=== PATIENT | female | born 1955 | race Caucasian/White ===

== ENCOUNTER 2017-01-07 17:04 | Inpatient (IN) | payer OTHER ==
[~2017-01-07] VITALS: Ht 157.5 cm; Wt 54.9 kg
[~2017-01-07 17:04] MED LIST changes: -AMLODIPINE BESY10 M1 PO; -BUPROPION XL150 MG PO; -DOCUSATE SODIU100 M3 PO; -MORPHINE SULFAT15 M4 PO; -SENNA PLUS TAB1 EACH PO; -SERTRALINE HCL50 MG PO
--- NOTE | 2017-01-07 17:14 | NUR ---
PT TO ED S/P URETER SURGERY WITH DR JUDGE THIS AM AT 0830, STENT PLACED. PT C/O NAUSEA AND DRY HEAVING "SINCE I WENT TO RECOVERY, I CAN'T KEEP ANYTHING DOWN"
--- NOTE | 2017-01-07 17:36 | NUR ---
MD KENDRA TO BEDSIDE FOR PT EVAL.
--- NOTE | 2017-01-07 17:36 | ED GI/GU/ABDOMINAL COMPLAINT ---
History of Present Illness General Chief Complaint: Nausea, Vomiting, Diarrhea Stated Complaint: NAUSEA, FLU-LIKE SX S/P OUTPATIENT SUREGRY THIS AM Source: patient, family Exam Limitations: no limitations Vital Signs & Intake/Output Vital Signs & Intake/Output Vital Signs Date Time Temp Pulse Resp B/P B/P Pulse O2 O2 Flow FiO2 Mean Ox Delivery Rate 01/11 0850 140/88 01/11 0658 98.2 68 16 158/80 94 Room Air 01/11 0423 178/100 01/11 0328 190/100 01/11 0233 98.0 68 16 190/100 92 Room Air 01/10 2246 98.6 71 20 154/88 92 Room Air 01/10 1845 98.5 63 18 158/98 95 Room Air 01/10 1616 178/98 01/10 1440 64 188/102 01/10 1415 97.9 61 20 162/99 93 Room Air 01/10 1051 70 170/98 ED Intake and Output 01/11 0000 01/10 1200 Intake Total 700 20 Output Total 1850 950 Balance -1150 -930 Intake, IV 600 20 Intake, Oral 100 Number 0 Bowel Movements Output, Urine 1850 950 Patient 121 lb Weight Allergies Coded Allergies: No Known Allergies (01/04/17) Reconcile Medications Bupropion HCl (Bupropion XL) 150 MG TAB.ER.24H 1 TAB PO QAM MENTAL HEALTH ( Reported) Sertraline HCl 50 MG TABLET 1 TAB PO DAILY MENTAL HEALTH (Reported) Triage Note: PT TO ED S/P URETER SURGERY WITH DR JUDGE THIS AM AT 0830, STENT PLACED. PT C/O NAUSEA AND DRY HEAVING "SINCE I WENT TO RECOVERY, I CAN'T KEEP ANYTHING DOWN" Triage Nurses Notes Reviewed? yes ? n Is pt currently ? No HPI: 61 yo F PMH migraines presenting with abdominal pain. Patient went for cystoscopy today with ureteral stenting, recovered well post procedure, discharged home, after discharge patient developed progressive nausea, vomiting, and left lower quadrant abdominal pain prompting return to the emergency department. Some hematuria since procedure, patient told to expect this. Denies fevers, chills, chest pain, shortness of breath, constpation diarrhea, bloody stools. (KENDRA ACOSTA,MELVA) Past History Travel History Traveled to [place] past 21 day No Medical History Any Pertinent Medical History? 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 Yes (MELVA GARDNER MD) Review of Systems Review of Systems Constitutional: Reports: malaise, weakness. EENTM: Reports: no symptoms. Respiratory: Reports: no symptoms. Cardiovascular: Reports: no symptoms. GI: Reports: abdominal pain, nausea, vomiting. Genitourinary: Reports: hematuria, pain. Musculoskeletal: Reports: no symptoms. Skin: Reports: no symptoms. Neurological/Psychological: Reports: no symptoms. Hematologic/Endocrine: Reports: no symptoms. Immunologic/Allergic: Reports: no symptoms. All Other Systems: Reviewed and Negative (MELVA GARDNER MD) Physical Exam Physical Exam General Appearance: well developed/nourished, alert, awake, anxious, mild distress Head: atraumatic, normal appearance Eyes: Bilateral: normal appearance. Neck: normal inspection, supple, full range of motion Respiratory: normal breath sounds, no respiratory distress, lungs clear Cardiovascular: regular rate/rhythm, normal peripheral pulses Gastrointestinal: normal bowel sounds, soft, LLQ TTP Back: normal inspection Comments: Abdomen: Moderate LLQ TTP with rebound Core Measures ACS in differential dx? No Severe Sepsis Present: No Septic Shock Present: No (MELVA GARDNER MD) Progress Differential Diagnosis: bowel obstruction, cholecystitis, diverticulitis, gastritis, ischemic bowel, kidney stone, ovarian cyst, ovarian torsion, PID/ cervicitis, PUD/GERD, perforated viscous Plan of Care: Orders Procedure Date/time Status CBC WITHOUT DIFFERENTIAL 01/11 06 Complete BASIC ELECTROLYTES PLUS BUN&CR 01/11 06 Complete XRY-FLUOROSCOPY,INDEPEND PROC 01/11 UNK Active Regular Diet 01/10 D Active Current Medications Sig/Melania Start time Last Medication Dose Stop Time Status Admin Amlodipine Besylate 10 MG DAILY 01/11 0315 AC 01/11 (Norvas) 0328 Amlodipine Besylate 10 MG ONCE ONE 01/11 0245 CAN (Norvasc) 01/11 0246 Morphine Sulfate 2 MG Q4P PRN 01/11 0030 AC 01/11 (Morphine) 0036 Sertraline HCl 50 MG 1700 01/10 1700 AC 01/10 (Zoloft) 1906 Morphine Sulfate 4 MG Q3P PRN 01/10 1615 AC 01/10 (Morphine) 1911 Docusate Sodium 100 MG DAILY 01/10 1000 AC 01/11 (Colace) 0815 Senna/Docusate Sodium 2 TAB DAILY 01/10 1000 AC 01/11 (Senokot S) 0815 Polyethylene Glycol 17 GM DAILY PRN 01/10 0845 AC 01/10 (Miralax) 2228 Bupropion HCl 150 MG 0801/10 0800 AC 01/11 (Wellbutrin XL) 0815 Simethicone 80 MG Q6P PRN 01/10 0030 AC 01/10 (Mylicon) 0627 Metoclopramide HCl 10 MG Q6P PRN 01/09 1200 AC 01/09 (Reglan) 1201 Nicotine 14 MG DAILY 01/08 1301 AC 01/11 (Nicotine Cq) 0815 Ceftazidime 1,000 MG IQ8 01/08 0000 AC 01/11 (Fortaz) 0815 Ondansetron HCl 4 MG Q4P PRN 01/07 2300 AC 01/09 (Zofran) 1043 Vancomycin HCl 1,000 MG 01/07 2300 AC 01/10 Sodium Chloride 250 ML 2229 (Normal Saline 0.9%) Acetaminophen 325 MG Q6P PRN 01/07 2115 AC 01/09 (Tylenol) 1357 Laboratory Tests 01/11/17 0610: Anion Gap 11, Estimated GFR > 60, BUN/Creatinine Ratio 15.0, CBC w Diff NO MAN DIFF REQ, RBC 4.19 L, MCV 92.7, MCH 31.1 H, RDW 14.1, MPV 9.2, Gran % 75.9 H, Lymphocytes % 13.2 L, Monocytes % 9.5 H, Eosinophils % 1.1, Basophils % 0.3, Absolute Granulocytes 7.9 H, Absolute Lymphocytes 1.4, Absolute Monocytes 1.0 H, Absolute Eosinophils 0.1, Absolute Basophils 0, PUBS MCHC 33.5 Physician MDM: 61 yo F presenting with LLQ pain s/p urologic procedure. VSS, abdominal exam as above. DDx: Ureteral rupture, stent migration, routine post- operative pain. Given a liter normal saline, Zofran, morphine with improvement in pain and nausea. Labs remarkable for leukocytosis of 15.3, CMP unremarkable. CT Abdomen and pelvis with left proximal ureter rupture. Case discussed with Dr. Woods, on-call for Dr. Dorsey who performed the procedure this afternoon, requested IR consultation for placement of nephrostomy tube, admission to hospital service. Case discussed with the hospitalist service (Dr. Gaspar), given presence of free air adjacent to ureteral rupture site. Case discussed with on-call prototyper (Dr. Ramos), accepted patient for ICU admission. IR consulted for nephrostomy tube placement, will evaluate patient for procedure. Admit to the intensive care unit for further management of ureteral rupture. The care was discussed with the patient and her daughter who expressed agreement and understanding. (KENDRA ACOSTA,MELVA) Initial ED EKG: normal axis (MELVA GARDNER MD) Departure Departure Disposition: STILL A PATIENT Condition: Stable Clinical Impression Primary Impression: Ureter injury Qualifiers: Encounter type: initial encounter Qualified Code: S37.10XA - Unspecified injury of ureter, initial encounter Secondary Impressions: LLQ pain Referrals: JUMANA LUNDBERG (PCP/Family) Departure Forms: Customer Survey General Discharge Information Admission Note Spoke With: DEIRDRE MONTEIRO MD Documentation of Exam: Documentation of any treatments & extenuating circumstances including Concerns Regarding Discharge (functional status, medication knowledge or non-compliance, living conditions, etc.) that warrant an admission rather than observation: [ Patient presents with left lower quadrant pain and profound nausea and vomiting following a urologic procedure today, she was found to have a ureteral rupture and will require admission for further management by urology or IR, her imaging demonstrated pneumoperitoneum, if she was discharged she has a high likelihood of further decompensation, morbidity, and possibly mortality, she requires monitoring advance management by urology or IR that cannot be performed outside of the hospital] (KENDRA ACOSTA,MELVA) PA/PILOT SAFETY INSPECTOR Co-Sign Statement Statement: ED Attending supervision documentation- [] I saw and evaluated the patient. I have also reviewed all the pertinent lab results and diagnostic results. I agree with the findings and the plan of care as documented in the PA's/PILOT SAFETY INSPECTOR's documentation. [X] I have reviewed the ED Record and agree with the PA's/PILOT SAFETY INSPECTOR's documentation. [] Additions or exceptions (if any) to the PAs/PILOT SAFETY INSPECTOR's note and plan are summarized below: [] (ISAK ACOSTA,FELICITA)
[2017-01-07] MEDS ORDERED: BUPROPION XL150 MG PO (17:49)
[2017-01-07] MEDS ORDERED: SERTRALINE HCL50 MG PO (17:49)
[2017-01-07 18:07] LABS: ABSOLUTE BASOPHIL COUNT 0.1 /CUMM (0.0-0.2); ABSOLUTE EOSINOPHIL COUNT 0 /CUMM (0.0-0.7); ABSOLUTE GRANULOCYTE CT 14.2 /CUMM (1.4-6.5); ABSOLUTE LYMPH COUNT 0.8 /CUMM (1.2-3.4); ABSOLUTE MONOCYTE COUNT 0.2 /CUMM (0.10-0.60); BASOPHIL % 0.4 % (0.0-2.0); EOSINOPHIL % 0.1 % (0-5); GRANULOCYTE % 93.1 % (42.2-75.2); HEMATOCRIT 42.4 % (37-47); MEAN CORPUSCULAR HGB 30.8 PG (27.0-31.0); MEAN CORPUSCULAR HGB CONC 32.9 G/DL (33.0-37.0); MEAN CORPUSCULAR VOLUME 93.6 FL (81.0-99.0); MEAN PLATELET VOLUME 8.6 FL (7.4-10.4); PLATELET COUNT 327 /CUMM (130-400); RBC DISTRIBUTION WIDTH 14.5 % (11.5-14.5); RED BLOOD CELL CT 4.53 /CUMM (4.20-5.40); WHITE BLOOD CELL COUNT 15.3 /CUMM (4.8-10.8)
--- NOTE | 2017-01-07 18:21 | NUR ---
IV EST, PT MEDICATED PER EMAR.
--- NOTE | 2017-01-07 19:04 | NUR ---
PT RETURNS FROM CT SCAN
--- NOTE | 2017-01-07 19:27 | NUR ---
PT MEDICATED WITH 4 MG IV MORPHINE FOR 10/10 PAIN AND GIVEN ICE CHIPS PER ORDERS MELVA SANCHEZ. MD GARDNER AT BEDSIDE DISCUSSING CT RESULTS WITH PATIENT. PT INCONTINENT OF URINE. PERICARE PROVIDED, LINENS CHANGED.
--- NOTE | 2017-01-07 19:46 | CT SCAN REPORT ---
EXAMINATION: CT ABDOMEN AND PELVIS WITH CONTRAST CLINICAL INFORMATION: Abdominal pain. Nausea and vomiting. Status post renal stenting. COMPARISON: None. TECHNIQUE: Multidetector volumetric imaging was performed of the abdomen and pelvis before and after the IV administration of 95 mL of Optiray 320 intravenous contrast. Sagittal and coronal reformatted images were obtained on the technologist's workstation. DLP: 242 mGy-cm FINDINGS: LUNG BASES: Mild dependent atelectasis. Minimal centrilobular emphysema. LIVER, GALLBLADDER, AND BILIARY TREE: Periportal edema is noted. The liver is normal in size and contour. No focal lesions. The gallbladder is unremarkable with no evidence of radiopaque gallstones, gallbladder wall thickening, or obvious pericholecystic inflammatory changes. PANCREAS: Unremarkable. SPLEEN: Unremarkable. ADRENAL GLANDS: Unremarkable. KIDNEYS AND URETERS: The left nephrogram is slightly delayed as compared to the contralateral side. Kidneys are normal in size and contour. No focal lesions. Perinephric fluid and fat stranding are present at the left kidney with extension of fluid into the left anterior pararenal space. Foci of gas are present around the left renal pelvis and proximal ureter along the anterior margin. Additional gas is present at the left lateral margin of the L2 vertebral body in this region. The proximal coil of the left ureteral stent is situated medial to the proximal ureter just inferomedial to the ureteral pelvic junction (1-2 cm). The wall of the ureter is not well seen in this region, though the stent likely extends through the wall of the ureter 4 cm proximal to the distal tip of the coil. This is also approximately 4 cm distal to the left UPJ. Hyperdense material just medial to the renal pelvis and the retroperitoneum, likely corresponding to a pocket of contrast containing fluid. This measures 2.8 x 1 x 2.8 cm, best seen on image 29/82 of series 2. BLADDER: The distal pole of the left double-J ureteral stent terminates within the bladder. A punctate focus of gas is present within the bladder. GASTROINTESTINAL TRACT: Stomach, small bowel, and colon are normal in caliber. There is a small amount of intraperitoneal fluid, presumably related to the ruptured ureter. No intraperitoneal free air. ABDOMINAL WALL: No significant hernia is appreciated. LYMPH NODES: Normal. VASCULAR: Calcific atherosclerosis is present in the abdominal aorta and iliac arteries. No aneurysmal dilatation. Mildly prominent periuterine veins are present bilaterally. PELVIC VISCERA: Uterus and ovaries are unremarkable. OSSEOUS STRUCTURES: Minimal degenerative disc disease. Marked facet arthropathy is present in the lower lumbar spine. No osseous lesions are identified. IMPRESSION: 1. The left double-J ureteral stent punctures through the wall of the left proximal ureter approximately 4 cm inferior to the left UPJ. Foci of gas and a small collection of contrast material are present around the left proximal ureter at the site of perforation. There is a small amount of fluid within the left retroperitoneum and a small amount of intraperitoneal fluid as well. 2. Periportal edema, commonly seen with aggressive intravenous fluid administration. This critical result was discussed by telephone with Dr. Sky at 7:20 PM on 01/07/2017.
--- NOTE | 2017-01-07 21:13 | NUR ---
HOUSE STAFF INTO EVALUATE PATIENT
--- NOTE | 2017-01-07 22:19 | History & Physical ---
KELLEYVINCENZOCASTILLO 01/07/17 2200: General Information and HPI MD Statement: I have seen and personally examined SUSANNA DUARTE and documented this H&P. The patient is a 61 year old F who presented with a patient stated chief complaint of [ LLQ pain, nausea and vomiting]. Source of Information: patient, family Exam Limitations: no limitations History of Present Illness: Patient is a 61-year-old female with past medical history of hematuria, stress incontinence, migraines, depression, tobacco abuse who presented to the ED today for abdominal pain, dry heaving, nausea post urological procedure this morning. Patient reports that she has been having hematuria for a few months now and following up with Dr. Mccarty regarding the same. An outpatient CAT scan revealed ?mass in the left ureter and so she was scheduled to undergo cystoscopy for evaluation. She underwent cystoscopy with urethral sling and left-sided urethral stent placement around 8:30 this morning. It was a difficult procedure, and required multiple attempts due to kinked left ureter. A 6 X 22 cm urethral stent was put in on the left side. She tolerated the procedure well and was discharged home. At home, patient started having abdominal pain and nausea with dry heaves. Pain was 10/10 in intensity, intermittent, sharp, in the left lower quadrant/groin area with hematuria. She spoke to her urologist who recommended her to take Tylenol/Motrin for the pain as it was expected post the procedure. Also the hematuria would was expected to clear up by itself. Patient continued to have pain with intense nausea and decided to come to the ER for evaluation. She denied any fevers, chills, chest pain, shortness of breath, urgency, frequency, dysuria, diarrhea or bright red blood per rectum. In the ER vitals were stable with a temperature of 96.1, pulse 82, respiration 20, blood pressure 158/75, saturating 96% on room air. Pertinent labs showed a white count of 15.3 with 4 bands, normal chemistries, and electrolytes levels. UA benign EKG-Sinus Bradycardia [address] abdomen and pelvis showed left double-J ureteral stent punctures through the wall of the left proximal ureter approximately 4 cm inferior to the left UPJ. Foci of gas and a small collection of contrast material are present around the left proximal ureter at the site of perforation. There is a small amount of fluid within the left retroperitoneum and a small amount of intraperitoneal fluid as well. Periportal edema, commonly seen with aggressive intravenous fluid administration. Allergies/Medications Allergies: Coded Allergies: No Known Allergies (01/04/17) Home Med list Bupropion HCl (Bupropion XL) 150 MG TAB.ER.24H 1 TAB PO QAM MENTAL HEALTH ( Reported) Sertraline HCl 50 MG TABLET 1 TAB PO DAILY MENTAL HEALTH (Reported) Past History Travel History Traveled to [place] past 21 day No Medical History Neurological: migraine EENT: hearing loss, HEARING AIDES Cardiovascular: NONE Respiratory: NONE Gastrointestinal: NONE Hepatic: NONE Renal: NONE Musculoskeletal: NONE Psychiatric: NONE Endocrine: NONE Blood Disorders: NONE Cancer(s): NONE CONTROL PANEL TESTER/Reproductive: NONE Surgical History Surgical History: none Past Family/Social History Psychosocial History ETOH Use: denies use Illicit Drug Use: denies illicit drug use Review of Systems Review of Systems Constitutional: Denies: malaise. EENTM: Reports: no symptoms. Cardiovascular: Reports: no symptoms. Respiratory: Reports: no symptoms. GI: Reports: abdominal pain, nausea, vomiting. Genitourinary: Reports: hematuria. Musculoskeletal: Reports: no symptoms. Skin: Reports: no symptoms. Neurological/Psychological: Reports: no symptoms. Exam & Diagnostic Data Last 24 Hrs of Vital Signs/I&O Vital Signs Date Time Temp Pulse Resp B/P B/P Pulse O2 O2 Flow FiO2 Mean Ox Delivery Rate 01/07 2130 98.7 60 20 145/72 97 Room Air 01/07 1916 97.8 58 20 174/77 98 Room Air 01/07 1714 96.1 82 20 158/75 96 Room Air Room Air Physical Exam General Appearance Alert, Oriented X3, Cooperative, No Acute Distress Skin No Rashes, No Breakdown, No Significant Lesion Skin Temp/Moisture Exam: Warm/Dry Sepsis Skin Exam (color): Normal for Ethnicity HEENT Atraumatic, PERRLA, EOMI, Mucous Membr. moist/pink Neck Supple, No JVD Lymphatic Cervical nl Cardiovascular Regular Rate, Normal S1, Normal S2, No Murmurs Lungs Clear to Auscultation, Normal Air Movement Abdomen Normal Bowel Sounds, tenderness in the LLQ, patient does not allow to palpate the left quadrant. No tenderness in the rest of the abdomen, sling noted on the right groin Neurological Normal Gait, Normal Speech, Strength at 5/5 X4 Ext, Normal Tone Extremities No Clubbing, No Cyanosis, No Edema, Normal Pulses Last 24 Hrs of Labs/Raudel: Laboratory Tests 01/07/17 1752: Anion Gap 10, Estimated GFR > 60, BUN/Creatinine Ratio 14.4, Glucose 131 H, Lactic Acid 1.2, Calcium 9.2, Lipase 41, CBC w Diff MAN DIFF ORDERED, RBC 4.53, MCV 93.6, MCH 30.8, RDW 14.5, MPV 8.6, Gran % 93.1 H, Lymphocytes % 5.1 L, Monocytes % 1.3 L, Eosinophils % 0.1, Basophils % 0.4, Absolute Granulocytes 14.2 H, Segmented Neutrophils 85 H, Band Neutrophils 4, Absolute Lymphocytes 0.8 L, Lymphocytes 6 L, Monocytes 4, Absolute Monocytes 0.2, Eosinophils 1, Absolute Eosinophils 0, Absolute Basophils 0.1, Platelet Estimate ADEQUATE, Normochromic RBCs VERIFIED, Anisocytosis 1+, Macrocytic Cells 1+, PUBS MCHC 32.9 L Assessment/Plan Assessment: Patient is a 61-year-old female with past medical history of hematuria, stress incontinence, migraines, depression, tobacco abuse who presented to the ED today for abdominal pain, dry heaving, nausea post urological procedure this morning. In the ER vitals were stable with a temperature of 96.1, pulse 82, respiration 20, blood pressure 158/75, saturating 96% on room air. Pertinent labs showed a white count of 15.3 with 4 bands, normal chemistries, and electrolytes levels. CT abdomen and pelvis showed left double-J ureteral stent punctures through the wall of the left proximal ureter approximately 4 cm inferior to the left UPJ. Foci of gas and a small collection of contrast material are present around the left proximal ureter at the site of perforation. There is a small amount of fluid within the left retroperitoneum and a small amount of intraperitoneal fluid as well. Periportal edema, commonly seen with aggressive intravenous fluid administration. ED intervention:Patient received IV fluids, IV Morphine and IV Zofran in the ED Assesment: * S/p cystoscopy and L urethral stent placement * Left double-J ureteral stent punctures through the wall of the left proximal ureter * Foci of gas and contrast material at the site of perforation * LLQ pain, nausea and dry heaving * Hematuria * Leukocytosis with bandemia Plan: * Patient is being admitted to the ICU for close monitoring. * She has leukocytosis but is not in sepsis at this point. No signs of peritonitis. She received 1 L normal saline in the ED. We will continue to hydrate her with IV normal saline at 75 mL an hour. * She had instrumentation in a.m., will cover with broad-spectrum antibiotics IV ceftazidime and IV vancomycin. * Will place Reina,check UA again, PT and INR, cultures. * Pain control with IV morphine every 2 when necessary * Nausea/vomiting controlled with IV Zofran * I spoke to prescription clerk Urologist ) and he recommended a left-sided nephrostomy tube placement by IR to drain the kidney externally till inflammation/swelling settles down. Plan is to keep the patient with a nephrostomy tube and take a decision regarding repositioning/replacement of the stent next week. He has discussed the plan with Dr Mccarty, who is in agreement. * Spoke to the radiologist Dr. Guillaume Samuel who feels that patient's kidney is not adequately dilated at this point which might make the procedure difficult. Plan is to do the nephrostomy tube placement early tomorrow morning at around 8 AM. * We will keep the patient NPO post midnight for left-sided nephrostomy tube placement at 8 in a.m. * DVT prophylaxis with Alps * Severe pain control pathway * Full code As Ranked By This Provider Problem List: 1. Rupture of urethra Core Measures/Miscellaneous Acute Coronary Syndrome ACS Diagnosis: No Cerebrovascular Accident CVA/TIA Diagnosis: No Congestive Heart Failure CHF Diagnosis: No Venous Thromboembolism VTE Risk Factors: Age > 40 No [facility] VTE prophylaxis d/t: No contraindications No VTE Pharm Prophylaxis d/t: Surgical contraindication (surgical precedure in am) VTE Diagnosis: No VTE Type: NONE VTE Confirmed by (Test): NONE Severe Sepsis Severe Sepsis Present: No Septic Shock Septic Shock Present: No Miscellaneous Documentation Attending Case Discussed With: THANIA Primary Care Physician: JUMANA LUNDBERG Patient sees these Specialists DR MCCARTY Level of Patient Care: Critical Care (CRI) DEIRDRE MONTEIRO 01/08/17 0132: Attending MD Review Statement Attending Statement Attending MD Statement: examined this patient, discuss w/resident/PA/HEAD HOLDER, agreed w/resident/PA/HEAD HOLDER, reviewed EMR data (avail), reviewed images, amended to note Attending Assessment/Plan: Cc: Nausea, persistent abdominal pain PMH: Depression, migraine Patient underwent cystoscopy today with ureteral stenting and urethral sling for hematuria, stress incontinence. She had some residual abdominal pain, nausea, hiccups in the recovery room, was discharged home. At home patient had progressive nausea, vomiting, and left lower quadrant abdominal pain so she came back to emergency department. She has hematuria since procedure as expected. , She denies objective fevers, chills, chest pain, shortness of breath, constipation diarrhea, bloody stools. Subjectively she was feeling "hot and cold " at home. Vitals: Afebrile, pulse 50s to 60s, RR 20, blood pressure 158/75, saturating well on room air. On exam: A O 3, cooperative, no acute distress, neck supple, JVD normal, no lymphadenopathy, mucosa moist, no focal neurological deficit, no dependent edema , no obvious skin rashes or inflammation, exam unremarkable, blacks string taped to right thigh. CVS: S1-S2, RRR. RS: Clear to auscultate bilaterally. Abdomen: Soft, tender, no guarding or rigidity, ND, bowel sounds present. Labs: WBC 15.3, neutrophils 93%, band 4, glucose [address] abdomen pelvis with IV contrast: 1. The left double-J ureteral stent punctures through the wall of the left proximal ureter approximately 4 cm inferior to the left UPJ. Foci of gas and a small collection of contrast material are present around the left proximal ureter at the site of perforation. There is a small amount of fluid within the left retroperitoneum and a small amount of intraperitoneal fluid as well. 2. Periportal edema, commonly seen with aggressive intravenous fluid administration. A and P # Perforation of ureter: Post procedural, fluid in retroperitoneum and intraperitoneal. Small amount of gas retroperitoneum. Patient underwent cystoscopy in morning with left ureter stent placement. Currently patient hemodynamically stable, abdomen tender but no guarding or rigidity. Urology and interventional radiology was consulted. we spoke with urologist and interventional radiologist regarding the plan. Patient will require percutaneous nephrostomy, the evaluation of ureter perforation and stent. Because patient's renal pelvis is not distended enough, nephrostomy procedure will be done at 8 AM tomorrow. Also discussed with Dr. Ramos. According to urologist and interventional radiologist, general surgical evaluation deferred for now, we will keep close watch for any deterioration of symptoms or requiring any urgent surgical procedure. - Admit to ICU - Hourly vitals, Is and O's - Blood culture, UA urine culture - Nothing by mouth after midnight - Check coag studies - Gentle hydration normal saline at 50-75 mL per hour - Broad-spectrum antibiotic with vancomycin and ceftazidime - Reina catheter if okay with the urologist TTS 30 min
--- NOTE | 2017-01-07 22:31 | NUR ---
BED ASSIGNED 104
--- NOTE | 2017-01-07 22:44 | NUR ---
REPORT TO RADHA BURDICK
--- NOTE | 2017-01-07 22:50 | NUR ---
PT TRANSPORTED TO ICU AT THIS TIME
--- NOTE | 2017-01-07 23:00 | NUR ---
PATIENT ADMITTED TO ICU VIA STRETCHER FROM ER. ALERT AND ORIENTED. MONITOR NSR AT 66 TO SINUS BRADYCARDIA AT 55.MANUAL BP 158/80. O2 SAT ON ROOM AIR=93% .LUNG SOUNDS CLEAR.NO DYSPNEA NOTED. PT DENIES PAIN.ABDOMEN SOFT.PT REQUESTING SOMETHING TO EAT.DENIES NAUSEA.WILL BE ALLOWED CLEAR LIQUIDS THEN NPO.BLOOD CULTURES DRAWN.HILTON CATHETER INSERTED.30 ML OF BLOOD TINGED URINE OBTAINED.SENT FOR U/A AND CULTURE.
[2017-01-07 23:30] VITALS: BP 154/80
--- NOTE | 2017-01-08 | NUR ---
WHEN HILTON PLACED TEGADERM WITH STRING TO URETHRA NOTED. REPORTED TO DR. BLUM.WILL CONTINUE WITH HILTON PLACEMENT.PT GIVEN CLEAR LIQUIDS.TOLERATED WELL.NPO AFTER 39.
--- NOTE | 2017-01-08 01:30 | NUR ---
MONITOR WILL OCCASIONALLY JADA DOWN TO 47.PATIENT ASYMPTOMATIC. MADE AWARE. ALSO MADE AWARE OF URINE OUTPUT OF 10 ML THIS LAST HOUR.IVF AT 75 ML/HR.PT SEEN BY .BLADDER SCAN 0.
--- NOTE | 2017-01-08 01:35 | Admission Certification ---
Admission Certification Certification Statement - As attending physician, I certify that at the time of - admission, based on clinical presentation, severity of - symptoms, need for further diagnostic testing and - therapeutic interventions, and risk of adverse outcomes - without in-hospital treatment, in my clinical assessment, - this patient requires an acute hospital stay for a minimum - of two nights or longer. I have also considered psychsocial - factors such as support system, advanced age, financial - issues, cognitive issues, and failed out-patient treatments, - past re-admission history, safety of patient, and lack of - compliance as applicable. Specific rationale supporting this admission is: post of ureter perforation
[2017-01-08 05:31] LABS: ABSOLUTE BASOPHIL COUNT 0 /CUMM (0.0-0.2); ABSOLUTE EOSINOPHIL COUNT 0 /CUMM (0.0-0.7); ABSOLUTE GRANULOCYTE CT 9.5 /CUMM (1.4-6.5); ABSOLUTE LYMPH COUNT 1.7 /CUMM (1.2-3.4); BASOPHIL % 0.3 % (0.0-2.0); EOSINOPHIL % 0 % (0-5); MEAN CORPUSCULAR VOLUME 93.4 FL (81.0-99.0); WHITE BLOOD CELL COUNT 12.4 /CUMM (4.8-10.8)
[2017-01-08 05:36] LABS: PT 11.6 SEC (9.4-12.5)
[2017-01-08 05:38] LABS: ABSOLUTE MONOCYTE COUNT 1.2 /CUMM (0.10-0.60); GRANULOCYTE % 76.8 % (42.2-75.2); MEAN CORPUSCULAR HGB 30.9 PG (27.0-31.0); MEAN PLATELET VOLUME 8.6 FL (7.4-10.4); PLATELET COUNT 305 /CUMM (130-400); RBC DISTRIBUTION WIDTH 14.8 % (11.5-14.5); RED BLOOD CELL CT 3.93 /CUMM (4.20-5.40)
[2017-01-08 05:47] LABS: HEMATOCRIT 36.7 % (37-47)
[2017-01-08 08:00] VITALS: BP 128/76
--- NOTE | 2017-01-08 08:05 | Cons- CRCU ---
VINH ACOSTA,[facility] 01/08/17 0805: General Information and HPI Consulting Request Date of Consult: 01/08/17 Requested By: DEIRDRE MONTEIRO Reason for Consult: Post urology procedure, fluid in retroperitoneum and intraperitoneal. Small amount of gas retroperitoneum. Source of Information: patient, old records Exam Limitations: no limitations History of Present Illness: Patient is a 61-year-old female with past medical history of recent onset of gross hematuria status post urology procedure yesterday morning, stress incontinence, migraines, depression, tobacco abuse who presented to the ED today for abdominal pain, dry heaving, nausea post urological procedure morning on day of admission 01/07. Patient reports that she has been having microscopic hematuria following up with Dr. Mccarty, had an outpatient CAT scan revealed mass in the left ureter so she was scheduled to undergo cystoscopy for an irregularity and poor filling of distal left ureterand . She underwent cystoscopy with urethral sling and left- sided urethral stent placement, It was a difficult procedure, and required multiple attempts due to kinked left ureter. A 6 X 22 cm urethral stent was put in on the left side. She tolerated the procedure well and was discharged home. At home, patient started having abdominal pain and nausea with dry heaves. Pain was 10/10 in intensity, intermittent, sharp, in the left lower quadrant/groin area with hematuria. She spoke to her urologist who recommended her to take Tylenol/Motrin for the pain as it was expected post the procedure. Also the hematuria would was expected to clear up by itself. Patient continued to have pain with intense nausea and decided to come to the ER for evaluation. She denied any fevers, chills, chest pain, shortness of breath, urgency, frequency, dysuria, diarrhea or bright red blood per rectum. This morning patient is alert oriented 3, reported left-sided abdominal pain 2/ 10, radiate to the back upon movement., denied nausea, vomiting, diarrhea. Patient denied fever, chills, chest pain. Reported nonproductive cough. Patient denied headache, blurry vision. Vital signs blood pressure lowest 84/57, highest 130/70, pulse lowest 42, highest 93 sinus rhythm, temperature 98.5, MAXIMUM TEMPERATURE 98.5, respiratory rate 12 saturating 95% on room air Intake 3127, output 1200 blood urine. Patient has normal saline running at 75 mL per hour. Allergies/Medications Allergies: Coded Allergies: No Known Allergies (01/04/17) Home Med List: Bupropion HCl (Bupropion XL) 150 MG TAB.ER.24H 1 TAB PO QAM MENTAL HEALTH ( Reported) Sertraline HCl 50 MG TABLET 1 TAB PO DAILY MENTAL HEALTH (Reported) Review of Systems Review of Systems Constitutional: Reports: see HPI. Past History Travel History Traveled to [place] past 21 day No Medical History Blood Transfusion Hx: No Neurological: migraine EENT: hearing loss, HEARING AIDES Cardiovascular: NONE Respiratory: NONE Gastrointestinal: NONE Hepatic: NONE Renal: RUPTURED URETER Musculoskeletal: NONE Psychiatric: depression Endocrine: NONE Blood Disorders: NONE Cancer(s): NONE SLAG WHEELER/Reproductive: NONE Surgical History Surgical History: URETHRAL STENT PLACEMENT Psychosocial History Where Do You Live? Home Smoking Status: Current Everyday Smoker ETOH Use: denies use Illicit Drug Use: denies illicit drug use Exam & Diagnostic Data Last 24 Hrs of Vital Signs/I&O Vital Signs Date Time Temp Pulse Resp B/P B/P Pulse O2 O2 Flow FiO2 Mean Ox Delivery Rate 01/08 1545 97.7 63 18 120/60 92 Room Air 01/08 1200 95 Room Air 01/08 0800 95 Room Air 01/08 0800 98.1 56 14 128/76 95 Room Air 01/08 0400 95 Room Air 01/08 0000 94 Room Air 01/07 2330 99.9 66 20 154/80 93 Room Air 01/07 2238 99.3 58 18 135/75 96 Room Air 01/07 2130 98.7 60 20 145/72 97 Room Air Intake & Output 01/08 1600 01/08 0800 01/08 0000 Intake Total 725 1360 Output Total 250 200 Balance 475 1160 Intake, IV 245 1135 Intake, Oral 480 225 Number 0 Bowel Movements Output, Urine 250 200 Patient 55.338 kg Weight Weight Bed scale Measurement Method Physical Exam General Appearance: well developed/nourished, no apparent distress, alert, awake Head: atraumatic, normal appearance Eyes: Bilateral: normal appearance, PERRL, EOMI. Ears, Nose, Throat: normal pharynx, normal ENT inspection Neck: normal inspection, supple, full range of motion Respiratory: normal breath sounds, chest non-tender, no respiratory distress Cardiovascular: regular rate/rhythm Gastrointestinal: normal bowel sounds, soft, left phrenic tenderness Last 48 Hrs of Labs/Raudel: Laboratory Tests 01/08/17 0459: Anion Gap 7, Estimated GFR 56 L, Glucose 112 H, Calcium 8.3 L, Phosphorus 3.8 , Magnesium 1.7, Total Bilirubin 0.6, AST 21, ALT 28, Albumin 3.3 L, PT 11.6, INR 1.11, CBC w Diff NO MAN DIFF REQ, RBC 3.93 L, MCV 93.4, MCH 30.9, RDW 14.8 H, MPV 8.6, Gran % 76.8 H, Lymphocytes % 13.5 L, Monocytes % 9.4 H, Eosinophils % 0, Basophils % 0.3, Absolute Granulocytes 9.5 H, Absolute Lymphocytes 1.7, Absolute Monocytes 1.2 H, Absolute Eosinophils 0, Absolute Basophils 0, PUBS MCHC 33.0 01/08/17 0000: Urinalysis LIGHT H, Urine Color BLDY H, Urine Clarity TURBD H, Urine pH 6.0, Ur Specific [place] 1.015, Urine Protein 100 H, Urine Ketones NEG, Urine Nitrite NEG, Urine Bilirubin NEG@ICTO, Urine Urobilinogen 0.2, Ur Leukocyte Esterase NEG, Ur Microscopic SEDIMENT EXAMINED, Urine RBC PACKD H, Urine Hemoglobin LARGE H, Urine Glucose NEG 01/07/17 1752: Anion Gap 10, Estimated GFR > 60, BUN/Creatinine Ratio 14.4, Glucose 131 H, Lactic Acid 1.2, Calcium 9.2, Lipase 41, CBC w Diff MAN DIFF ORDERED, RBC 4.53, MCV 93.6, MCH 30.8, RDW 14.5, MPV 8.6, Gran % 93.1 H, Lymphocytes % 5.1 L, Monocytes % 1.3 L, Eosinophils % 0.1, Basophils % 0.4, Absolute Granulocytes 14.2 H, Segmented Neutrophils 85 H, Band Neutrophils 4, Absolute Lymphocytes 0.8 L, Lymphocytes 6 L, Monocytes 4, Absolute Monocytes 0.2, Eosinophils 1, Absolute Eosinophils 0, Absolute Basophils 0.1, Platelet Estimate ADEQUATE, Normochromic RBCs VERIFIED, Anisocytosis 1+, Macrocytic Cells 1+, PUBS MCHC 32.9 L Assessment/Plan Impression/Plan: Ms. Chandler is a 61 year old female with past medical history significant for recent onset of gross hematuria after on the morning of day of admission, stress incontinence, migraines, depression, tobacco abuse who presented to the ED today for abdominal pain, dry heaving, nausea post urological procedure 01/08/17. CT scan abdomen pelvis with IV contrast on admission 01/07 IMPRESSION: 1. The left double-J ureteral stent punctures through the wall of the left proximal ureter approximately 4 cm inferior to the left UPJ. Foci of gas and a small collection of contrast material are present around the left proximal ureter at the site of perforation. There is a small amount of fluid within the left retroperitoneum and a small amount of intraperitoneal fluid as well. 2. Periportal edema, commonly seen with aggressive intravenous fluid administration. Problem list: * S/p cystoscopy and L urethral stent placement * Gross hematuria with CT evidence of Left double-J ureteral stent punctures through the wall of the left proximal ureter with foci of gas and contrast material at the site of perforation * Leukocytosis with bandemia Plan: * Patient had CT abdomen pelvis with and without IV contrast this morning 01/08 that revealed malpositioned left double-J ureteral stent which penetrates through the medial wall of the proximal left ureter. Iodinated contrast material and mild amount of hemorrhage are present within the left perinephric space * IR procedure, left side the cutaneous nephrostomy was done 01/08 * Patient tolerated the procedure well, diet was started * Patient continued to to be hemodynamically stable, will downgrade to general medical floor * Urology consultation was obtained, thanks the recommendation * Left ureter stent was removed by Dr. hanley today * Continue IV ceftazidime and IV vancomycin Day#2 * Pain control with IV morphine every 2 when necessary * Nausea/vomiting controlled with IV Zofran * DVT prophylaxis with Alps, consider pharmacological DVT prophylaxis tomorrow * Diet regular * Full code Consult Acknowledgment - Thank you for your consult request. LM PRESTON MD 01/08/17 0900: Assessment/Plan Other Findings/Comments: Lm Kirkland M.D. have examined this patient, reviewed available EMR data, personally reviewed images, discussed with resident/PA/SUBSURFACE AUGMENTEE ELINT OPERATOR, discussed management plan with housestaff and nursing staff, discussed managment plan all of healthcare providers, discussed management plan with patient and/or family, agreed with resident/PA/SUBSURFACE AUGMENTEE ELINT OPERATOR. The past history and parts of the chart have been autopopulated. Impression 61-year-old woman * Ureteral perforation * Retroperitoneal gas * Status post cystoscopy with left ureteral stent placement - for an irregularity and poor filling of distal left ureter Plan -From the intensive care perspective patient will be monitored and watched for hemodynamic stability and possible transient bacteremia -Close urological and interventional radiology input for the underlying pathology -Follow up all cultures and monitor hemodynamics -Given possible transient bacteremia patient remains on broad-spectrum antibiotics which should be continued at this time -If patient tolerates all procedures well and okay with the specialists can be downgraded at that time -Strict ins and outs and electrolyte monitoring -Per urology no need for general surgery evaluation of this point will monitor -DVT prophylaxis at all times-Lovenox was held due to anticipated procedure -Pain control TTS 40 minutes Consult Acknowledgment - Thank you for your consult request.
--- NOTE | 2017-01-08 08:20 | NUR ---
AFEBRILE,A&OX3,REPORTS 0/10 PAIN,LLQ TENDERNESS ON PALPATION,HILTON INTACT BLOOD TINGED U/O, TEGADERM @RIGHT THIGH/STRING,NPO,NS MAINTAINED @ 75 MLS/HR, POSITIVE B.S.,DENIES N/V, SB 46-59, BP 128/76,DENIES CP, RA CLEAR LUNG SOUNDS 95%. DENTURES,GLASSES,HEAR-AIDS REMOVED SCHEDULED FOR IR THIS AM FOR PLACEMENT OF NEPHROSTOMY TUBE
--- NOTE | 2017-01-08 10:34 | NUR ---
[address] SCAN THEN TO IR AT 1030 FOR LEFT NEPHROSTOMY TUBE PLACEMENT
--- NOTE | 2017-01-08 10:41 | CT SCAN REPORT ---
EXAMINATION: CT ABDOMEN AND PELVIS WITHOUT AND WITH CONTRAST CLINICAL INFORMATION: Possible left ureteral rupture. COMPARISON: CT abdomen pelvis from 01/07/2017. TECHNIQUE: Multidetector volumetric imaging was performed through the abdomen prior to IV contrast. The abdomen and pelvis were then reexamined after the administration of 95 mL Optiray 320 intravenous contrast. Sagittal and coronal reformatted images were obtained on the technologist's workstation. DLP: 478 mGy-cm FINDINGS: LUNG BASES: Mild atelectasis in dependent aspect of each lower lobe. LIVER, GALLBLADDER, AND BILIARY TREE: No acute findings in the liver compared to the prior exam. A punctate calcification in the left hepatic lobe. No intrahepatic bile duct dilatation. No evidence of periportal edema. There is mild amount of excreted contrast material within the lumen of the gallbladder. PANCREAS: Unremarkable. SPLEEN: Unremarkable. ADRENAL GLANDS: Unremarkable. KIDNEYS, URETERS AND BLADDER: There is contrast material within the collecting system from intravenous contrast given on 01/07/2017. Again noted is the double-J left ureteral stent that penetrates through the medial wall of the proximal left ureter. The proximal loop of the stent is located in the medial perinephric space just below the level of the left ureteropelvic junction. There is iodinated contrast material and mild amount of hemorrhage within the perinephric space, extending along the left psoas. Also, there is persistent gas within the perinephric space and extending along the anterior renal fascia. Urinary bladder is decompressed by a Reina catheter. GASTROINTESTINAL TRACT: Loops of bowel are normal in caliber. No evidence of acute inflammation or obstruction along the gastrointestinal tract. ABDOMINAL WALL: Unremarkable. LYMPH NODES: No pathologic sized lymph nodes within the abdomen or pelvis. VASCULAR: Atherosclerotic calcification of the abdominal aorta and iliac arteries without aneurysm. PELVIC VISCERA: Uterus and adnexa are unremarkable. There is persistent edema within the presacral space. OSSEOUS STRUCTURES: No acute skeletal findings compared to 01/07/2017. IMPRESSION: Again noted is the malpositioned left double-J ureteral stent which penetrates through the medial wall of the proximal left ureter. Iodinated contrast material and mild amount of hemorrhage are present within the left perinephric space.
--- NOTE | 2017-01-08 11:52 | INTERVENTIONAL RADIOLOGY RPT ---
CLINICAL HISTORY: This patient is a 61-year-old female who presents to interventional radiology for placement of a percutaneous nephrostomy catheter. She underwent internal ureteral stenting yesterday and experienced postprocedural pain. Therefore a follow-up CT scan was performed last night which demonstrated retroperitoneal gas bubbles and fluid, suggestive of a ureteral injury. After discussing with urologist Dr. Woods, we did a repeat CT urogram this morning which demonstrated extravasation of contrast from the ureter into the retroperitoneal space. A percutaneous nephrostomy tube is requested for urinary diversion. PROCEDURES: 1. Focal ultrasound evaluation of the left kidney. 2. Left antegrade nephrostogram. 3. Placement of a left-sided 8.5 Fr percutaneous nephrostomy catheter. 4. Post procedure tube nephrostogram. PHYSICIANS: Anita Pickett M.D., Ph.D. MONITORING: The procedure was performed with conscious sedation and analgesia under my direct supervision. Continuous blood pressure, pulse oximetry as well as heartrate monitoring was performed by an independent registered nurse. Physician intraservice sedation time was 30 minutes. MEDICATIONS: 1. 1 mg of Versed and 50 micrograms of fentanyl were administered. 2. 8 mL of 1% lidocaine SQ. 3. The patient is already covered with antibiotics from the ICU. COMPLICATIONS: None. ESTIMATED BLOOD LOSS: < 5 mL. SPECIMENS: None. CONTRAST: Optiray 10 mL, post nephron. FLUOROSCOPY TIME: 2.6 minutes PROCEDURE NOTE: Informed consent was obtained from the patient prior to the procedure. During this process, the procedure and potential alternatives were explained along with the intended outcome and benefits. The risks of the procedure, including the possibility of an unsuccessful procedure, as well as the risk of not doing the procedure, were discussed. The patient was given the opportunity to ask questions regarding the procedure and appeared competent to make decisions. A signed consent form documenting this discussion was placed in the medical record. A time-out procedure was performed. The patient was placed prone on the fluoroscopy table. The back was prepped and draped in usual sterile fashion. After localizing an approach, the anticipated needle track was anesthetized with local lidocaine injection. Under ultrasound-guidance, a 20 gauge needle was advanced into a posterior lower pole calyx and position within the urinary system was confirmed with urine reflux out of the needle hub. Contrast was gently injected for antegrade nephrostogram evaluation. Next, a 0.018 in wire was advanced through the needle into the collecting system. A Grebb access 6 Fr OD set was then advanced over the wire under fluoroscopic-guidance. A 0.035 in stiff glide wire was advanced through the set sheath into the ureter. The sheath was removed over the wire and a 8.5 Fr Resolve catheter was advanced into the collecting system and coiled within the renal pelvis. Position was confirmed with gentle contrast injection and the tube was locked in position. The tube was secured into position with a 0 silk suture and a StatLock device. FINDINGS: 1. Left-sided mild hydronephrosis. 2. Successful placement of a left 8.5 Fr Resolve nephrostomy catheter. 3. Extra ureteral location of the proximal pigtail portion of the internal ureteral stent. IMPRESSION: Successful placement of left-sided percutaneous nephrostomy catheter. Extra ureteral location of the proximal pigtail portion of the internal ureteral stent. PLAN: 1. The patient was stable after the procedure and was transferred to the interventional recovery area. The patient will be transferred to the ICU. 2. The tube should be left to external gravity drainage via drainage bag. 3. The patient should return to interventional radiology in 8-12 weeks for routine catheter exchange if she retains the tube. 4. Flush orders were written in the chart for 10 mL sterile normal saline to be flushed slowly every shift until the urine is no longer blood-tinged. Findings discussed with Dr. Woods from radiology at the end of the procedure at approximately 11:45 AM on 01/08/2017.
[2017-01-08 15:45] VITALS: BP 120/60
--- NOTE | 2017-01-08 16:06 | NUR ---
PT ARRIVED TO FLOOR AT [facility]. 1530. A & O X 3, NO C/O PAIN. L SIDED NEPHROSTOMY IN PLACE, SEROSANGUINOUS DRAINAGE NOTED, FLUSHED PER MD ORDER. BED LOW, LOCKED, CALL ENGLISH WITHIN REACH. MONITOR AND MAINTAIN SAFETY PRECATIONS.
--- NOTE | 2017-01-08 19:31 | Cons- Urology ---
General Information and HPI Consulting Request Date of Consult: 01/08/17 Requested By: LATOYA PRESTON MD Reason for Consult: ureter rupture Source of Information: patient Exam Limitations: no limitations History of Present Illness: 61 yr female admitted to medical service last night. She had undergone cysto/ left retrograde/diagnostic ureteroscopy by dr aurora liz yesterday.The patient presented to the ER with severe left flank pain and a CT was done suggesting a proximal ureteral injury with the stent being outside the ureter. The patient was set up for interventional radiology to do a nephrostomy tube as diversion. I had spoken with them last night about this as the most appropriate plan and indeed had discussed this with dr liz by phone last night. Due to limited IR coverage last night and the patient not being acutely ill, the procedure was scheduled for this morning. In discussions with Dr Billie Pickett, radiologist, there was concern that maybe the ureter was not perforated thus a repeat ct was done confirming the inital concern of a prox ureteral injury with the stent outside of the ureter. With that in mind the nephrostomy tube was placed by Dr Pickett without complication. The patient is currently resting comfortably in the ICU. Allergies/Medications Allergies: Coded Allergies: No Known Allergies (01/04/17) Home Med List: Bupropion HCl (Bupropion XL) 150 MG TAB.ER.24H 1 TAB PO QAM MENTAL HEALTH ( Reported) Sertraline HCl 50 MG TABLET 1 TAB PO DAILY MENTAL HEALTH (Reported) Current Medications: Current Medications Sig/Melania Start time Last Medication Dose Route Stop Time Status Admin Acetaminophen 325 MG Q6P PRN 01/07 2115 AC PO Ceftazidime 1,000 MG IQ8 01/08 0000 AC 01/08 IV 1655 Enoxaparin Sodium 40 MG DAILY 01/07 2109 DC SC Fentanyl Citrate 0 .STK-MED ONE 01/08 1007 DC .ROUTE Lidocaine 0 .STK-MED ONE 01/08 1008 DC .ROUTE Midazolam HCl 0 .STK-MED ONE 01/08 1007 DC .ROUTE Morphine Sulfate 4 MG Q4P PRN 01/07 2300 AC 01/08 IV 1721 Morphine Sulfate 2 MG Q4P PRN 01/07 2115 DC IV Morphine Sulfate 4 MG ONCE ONE 01/07 1930 DC 01/07 IV 01/07 1931 192 Morphine Sulfate 0 .STK-MED ONE 01/07 1923 DC .ROUTE Nicotine 14 MG DAILY 01/08 1301 AC 01/08 TOP 1446 Ondansetron HCl 4 MG Q4P PRN 01/07 2300 AC IV Oxycodone HCl 5 MG Q6P PRN 01/07 2115 AC 01/08 PO 1444 Sodium Chloride 1,000 ML Q13H 01/07 2300 DC 01/08 IV 0037 Sodium Chloride 1,000 ML BOLUS ONE 01/07 181 DC 01/07 IV 01/07 Vancomycin HCl 1,000 MG 2200 01/07 2300 AC 01/07 Sodium Chloride 250 ML IV 2239 Past History Medical History Blood Transfusion Hx: No Neurological: migraine EENT: hearing loss, HEARING AIDES Cardiovascular: NONE Respiratory: NONE Gastrointestinal: NONE Hepatic: NONE Renal: RUPTURED URETER Musculoskeletal: NONE Psychiatric: depression Endocrine: NONE Blood Disorders: NONE Cancer(s): NONE PROGRAM DIRECTOR/TRAFFIC DIRECTOR/Reproductive: NONE Surgical History Pertinent Surgical History: URETHRAL STENT PLACEMENT Psychosocial History Where Do You Live? Home Smoking Status: Current Everyday Smoker ETOH Use: denies use Illicit Drug Use: denies illicit drug use Review of Systems Review of Systems: denies n/v no f/c some mild left flank pain Exam & Diagnostic Data Vital Signs and I&O Vital Signs Date Time Temp Pulse Resp B/P B/P Pulse O2 O2 Flow FiO2 Mean Ox Delivery Rate 01/08 1545 97.7 63 18 120/60 92 Room Air 01/08 1200 95 Room Air 01/08 0800 95 Room Air 01/08 0800 98.1 56 14 128/76 95 Room Air 01/08 0400 95 Room Air 01/08 0000 94 Room Air 01/07 2330 99.9 66 20 154/80 93 Room Air 01/07 2238 99.3 58 18 135/75 96 Room Air 01/07 2130 98.7 60 20 145/72 97 Room Air Intake & Output 01/08 1600 01/08 0800 01/08 0000 01/07 1600 01/07 0800 01/07 0000 Intake Total 725 1360 Output Total 250 200 Balance 475 1160 Intake, IV 245 1135 Intake, Oral 480 225 Number 0 Bowel Movements Output, Urine 250 200 Patient 122 lb Weight Weight Bed scale Measurement Method Physical Exam: resting comfortably abd soft left neph tube light tea colored/no clots tyson clear/ ureteral stent string taped to right inner thigh Physical Exam General Appearance: well developed/nourished Assessment/Plan Assessment/Plan left ureteral perforation s/p cysto/ureteroscopy/stent placement the patient had appropriate diversion with a nephrostomy tube i had a long conversation with the patient and her daughter regarding the events that occurred and managment both today and likely going forward with probable stent placement in a couple of days and then removal of the neph tube she should be kept on ab's through the weekend empirically and I did remove the ureteral stent that was taped to her inner thigh i told the patient that i had discussed management with dr liz as well as he partner dr oakes last night and we are all on the same page All of this was reviewed as well with the urology Loli MURRAY who will see the patient in the am, as well as the hospitalist attending and resident md in the ICU Problem List: 1. Rupture of urethra Copies To: NURA ACOSTA,AURORA Consult Acknowledgment - Thank you for your consult request. Attending MD Review Statement Attending Statement Attending MD Statement: examined this patient, discuss w/resident/PA/SPA HOST, agreed w/resident/PA/SPA HOST, discussed with family, discussed w/nursing, reviewed images
[2017-01-08 22:22] VITALS: BP 158/70
--- NOTE | 2017-01-09 | NUR ---
BP 158/70 AT END OF SHIFT, PT C/O PAIN. [employer] TO BEDSIDE TO REEVALUATE, PT C/O MORE PAIN 10/10 AND NAUSEA. MEDS PROVIDED PER EMAR. RECEIVING RADHA QUIROZ MADE AWARE TO F/U BP AFTER PAIN HAS SUBSIDED.
[2017-01-09 01:31] VITALS: BP 180/88
[2017-01-09 01:33] VITALS: BP 180/88
[2017-01-09 02:05] VITALS: BP 172/88
--- NOTE | 2017-01-09 02:09 | NUR ---
BP AT CHANGE OF SHIFT ELEVATED TO 158/80 PT C/O 10/10 PAIN AT THIS TIME. ONE TIME ORDER OF MORPHINE IV GIVEN. BP RECHECKED AFTER PAIN MED GIVEN AT 0130, 180/88 HR 60. PT DENIES CHEST PAIN, NAUSEA, HEADACHE AND SOB. PT RATES PAIN 0/10 AT THIS TIME. MD DEEPTI KIMBALL NOTIFIED. PER RECHECK BP 30 MIN LATER. BP CHECKED AT 0200 172/88 HR 63. MD NOTIFIED AND PER PT IS OKAY AND NORMALLY RUNS HIGH. NO NEW ORDERS AT THIS TIME. WILL CONTINUE TO MONITOR.
[2017-01-09 06:29] VITALS: BP 162/90
--- NOTE | 2017-01-09 08:06 | PN- Housestaff ---
LUIS MANUEL ACOSTA,LB 01/09/17 0805: Subjective Follow-up For: Hematuria Perforated ureter Subjective: Patient seen and examined. She is seen lying flat in bed resting comfortably. She appears mildly uncomfortable, but in no acute distress. She reports some mild nausea with a moderate/severe intermittent pain that shoots across her abdomen, similar to the pain that brought her in. She is requesting to eat breakfast, and otherwise denies any new subjective complaints. Additionally she denies any fever, chills, chest pain, palpitations, shortness of breath, vomiting, diarrhea. No overnight events reported. Review of Systems Constitutional: Reports: see HPI. Objective Last 24 Hrs of Vital Signs/I&O Vital Signs Date Time Temp Pulse Resp B/P B/P Pulse O2 O2 Flow FiO2 Mean Ox Delivery Rate 01/09 0629 98.4 63 20 162/90 94 Room Air 01/09 0205 63 172/88 01/09 0133 60 180/88 01/09 0131 60 180/88 01/08 2222 98.5 62 20 158/70 93 Room Air 01/08 1545 97.7 63 18 120/60 92 Room Air Intake & Output 01/09 1600 01/09 0800 01/09 0000 Intake Total 250 400 Output Total 1030 650 Balance -780 -250 Intake, IV 10 Intake, Oral 240 400 Number 0 Bowel Movements Output, Urine 1030 650 Physical Exam General Appearance: Alert, Oriented X3, Cooperative, No Acute Distress Other Physical Findings: General - well developed, thin middled aged woman in no acute distress HEENT - NCAT, PERRL, EOMI, anicteric sclera CVS - S1, S2 w/o m/g/r Resp - CTA bilaterally GI - soft, mild diffuse tenderness, nondistended, bowel sounds intact, no bruising, left percutaneous nephrostomy in placed draining clear/yellow urine Neuro - Awake and alert, CN II - XII grossly intact Ext - normal pulses, no cyanosis/clubbing/edema Current Medications: Current Medications Sig/Melania Start time Last Medication Dose Route Stop Time Status Admin Acetaminophen 325 MG Q6P PRN 01/07 2115 AC PO Bupropion HCl 150 MG 01/10 0800 AC PO Ceftazidime 1,000 MG IQ8 01/08 0000 AC 01/09 IV 0803 Hydromorphone HCl 1 MG Q4P PRN 01/09 1000 AC 01/09 IV 1003 Metoclopramide HCl 10 MG Q6P PRN 01/09 1200 AC 01/09 IV 1201 Morphine Sulfate 4 MG ONCE ONE 01/09 0030 DC 01/09 IV 01/09 0031 0037 Morphine Sulfate 4 MG Q4P PRN 01/07 2300 DC 01/08 IV 2104 Nicotine 14 MG DAILY 01/08 1301 AC 01/09 TOP 0803 Ondansetron HCl 4 MG .STK-MED ONE 01/08 2308 DC IM 01/08 2309 Ondansetron HCl 4 MG Q4P PRN 01/07 2300 AC 01/09 IV 1043 Oxycodone HCl 5 MG Q6 01/09 1200 AC PO Oxycodone HCl 5 MG .STK-MED ONE 01/08 2304 DC PO 01/08 2305 Oxycodone HCl 5 MG .STK-MED ONE 01/08 1443 DC PO 01/08 1444 Oxycodone HCl 5 MG Q6P PRN 01/07 2115 DC 01/09 PO 0704 Sertraline HCl 50 MG DAILY 01/09 1000 AC PO Sodium Chloride 1,000 ML Q20H 01/08 2145 DC IV 01/09 1744 Sodium Chloride 1,000 ML Q13H 01/07 2300 DC 01/08 IV 0037 Vancomycin HCl 1,000 MG 2200 01/07 2300 AC 01/08 Sodium Chloride 250 ML IV 2104 Last 24 Hrs of Lab/Raudel Results Last 24 Hrs of Labs/Mics: Laboratory Tests 01/09/17 0820: Anion Gap 9, Estimated GFR > 60, BUN/Creatinine Ratio 18.6, CBC w Diff NO MAN DIFF REQ, RBC 4.05 L, MCV 92.4, MCH 30.9, RDW 14.5, MPV 8.9, Gran % 73.8, Lymphocytes % 14.5 L, Monocytes % 10.7 H, Eosinophils % 0.4, Basophils % 0.6, Absolute Granulocytes 9.1 H, Absolute Lymphocytes 1.8, Absolute Monocytes 1.3 H, Absolute Eosinophils 0, Absolute Basophils 0.1, PUBS MCHC 33.4 Assessment/Plan Assessment: Ms. Chandler is a 61 year old female with past medical history significant for recent onset of gross hematuria after on the morning of day of admission, stress incontinence, migraines, depression, tobacco abuse who presented to the ED today for abdominal pain, dry heaving, nausea post urological procedure 01/08/17. Hospital Day 2 Patient remains afebrile with stable leukocytosis while on intravenous Vancomycin/Ceftazidime. She continues to complain of persistent abdominal pain that is not well controlled on the current mediation regimen. Oxycodone was changed to schedule dosing and morphine was converted to dilaudid. She is to be made NPO overnight for a possible urologic procedure tomorrow. Perforated Ureter s/p Stent Patient initially seen for evaluation of hematuria and imaging findings suggestive of a left ureter mass for which she underwent placement of a stent that was complicated with a perforation. A percutaneous nephrostomy tube was placed by interventional radiology without difficulty. Patient was initially monitored in the ICU on intravenous antibiotics before beings transferred to the general medicine floor for further management and care. -General Medicine -Pain control -Ceftazidime 1g IV Q8H -Vancomycin -Zofran 4mg IV Q6H PRN Nausea -Reglan 10mg IV Q6H PRN Nausea -Urology consult -Follow up cultures & sensitivities Depression -Buproprion 150mg PO Daily -Sertraline 50mg PO Daily Current Everyday Smoker-Nicotine 14mg Patch Daily Pain Plan-Acetaminophen/Oxycodone scheduled/Dilaudid for breakthrough pain Bowel Regimen-Senna/Colace/Miralax Diet-Regular Diet, NPO overnight DVT PPx-ALPS Code Status- FULL CODE Problem List: 1. Ureter injury Pain Ratin Pain Location: Abdomen Pain Goal: Pain 7 or less Pain Plan: See assessment Tomorrow's Labs & Rationales: CBC-leukocytosis [facility] 01/09/17 1455: Attending MD Review Statement Attending Statement Attending MD Statement: examined this patient, discuss w/resident/PA/ORTHODONTIST, agreed w/resident/PA/ORTHODONTIST, discussed with family, reviewed EMR data (avail), discussed with nursing, discussed with case mgmt, reviewed images, amended to note Attending Assessment/Plan: Patient is resting comfortably in bed. Was complaining of abdominal pain at night, but 10 on 10. She is feeling better this morning, still experiencing abdominal pain. We will switch her morphine to Dilaudid and make Roxicodone scheduled [id number]. Continue antibiotics for now follow-up urology. Please resume her home psychiatry medications.
[2017-01-09 09:15] LABS: ABSOLUTE BASOPHIL COUNT 0.1 /CUMM (0.0-0.2); ABSOLUTE EOSINOPHIL COUNT 0 /CUMM (0.0-0.7); ABSOLUTE GRANULOCYTE CT 9.1 /CUMM (1.4-6.5); ABSOLUTE LYMPH COUNT 1.8 /CUMM (1.2-3.4); ABSOLUTE MONOCYTE COUNT 1.3 /CUMM (0.10-0.60); BASOPHIL % 0.6 % (0.0-2.0); EOSINOPHIL % 0.4 % (0-5); GRANULOCYTE % 73.8 % (42.2-75.2); HEMATOCRIT 37.4 % (37-47); MEAN CORPUSCULAR HGB 30.9 PG (27.0-31.0); MEAN CORPUSCULAR HGB CONC 33.4 G/DL (33.0-37.0); MEAN CORPUSCULAR VOLUME 92.4 FL (81.0-99.0); MEAN PLATELET VOLUME 8.9 FL (7.4-10.4); PLATELET COUNT 283 /CUMM (130-400); RBC DISTRIBUTION WIDTH 14.5 % (11.5-14.5); RED BLOOD CELL CT 4.05 /CUMM (4.20-5.40); WHITE BLOOD CELL COUNT 12.3 /CUMM (4.8-10.8)
--- NOTE | 2017-01-09 10:49 | PN- Urology ---
Subjective Subjective: Patient continues to complain of pain and some nausea this morning. She states that her pain is are being changed. The pain is both at the nephrostomy tube site and also intra-abdominal, "stabbing" pain. Diet has been resumed. Objective Vital Signs and I&Os Vital Signs Date Time Temp Pulse Resp B/P B/P Pulse O2 O2 Flow FiO2 Mean Ox Delivery Rate 01/09 0629 98.4 63 20 162/90 94 Room Air 01/09 0205 63 172/88 01/09 0133 60 180/88 01/09 0131 60 180/88 01/08 2222 98.5 62 20 158/70 93 Room Air 01/08 1545 97.7 63 18 120/60 92 Room Air 01/08 1200 95 Room Air Intake & Output 01/09 1600 01/09 0800 01/09 0000 01/08 1600 01/08 0800 01/08 0000 Intake Total 250 349 569 5448 Output Total 830 650 250 200 Balance -580 -557 013 7426 Intake, IV 10 245 1135 Intake, Oral 240 400 480 225 Number 0 0 Bowel Movements Output, Urine 830 650 250 200 Patient 122 lb Weight Weight Bed scale Measurement Method Physical Exam: Gen.: Patient is awake and alert. No acute distress. Abdomen: Soft and mildly distended. There is still some mild tenderness in the upper abdomen and left lower quadrant. The nephrostomy tube is in place. Positive hematuria, pink. Assessment/Plan Assessment/Plan Patient is a 61-year-old female who is now hospital day #2 status post cystoscopy complicated by a perforated ureter. She is postoperative day #1 status post diverting IR nephrostomy tube. Plan: -Continue nephrostomy tube drainage. -Okay for patient to eat today. -Patient will likely need placement of a covered ureteral stent within the next few days. We'll follow-up with Dr. Mccarty recommendations tomorrow. Please keep patient nothing by mouth after midnight just in case Dr. Mccarty decides to perform a procedure tomorrow. -Continue IV antibiotics as ordered.
[2017-01-09 14:23] VITALS: BP 164/88
[2017-01-09 22:56] VITALS: BP 140/80
[2017-01-10 06:53] VITALS: BP 150/100
[2017-01-10 08:13] LABS: ABSOLUTE BASOPHIL COUNT 0.1 /CUMM (0.0-0.2); ABSOLUTE EOSINOPHIL COUNT 0 /CUMM (0.0-0.7); ABSOLUTE GRANULOCYTE CT 8.3 /CUMM (1.4-6.5); ABSOLUTE LYMPH COUNT 1.7 /CUMM (1.2-3.4); ABSOLUTE MONOCYTE COUNT 1.2 /CUMM (0.10-0.60); BASOPHIL % 0.6 % (0.0-2.0); EOSINOPHIL % 0.4 % (0-5); GRANULOCYTE % 73.7 % (42.2-75.2); HEMATOCRIT 39.8 % (37-47); MEAN CORPUSCULAR HGB 30.9 PG (27.0-31.0); MEAN CORPUSCULAR HGB CONC 33.3 G/DL (33.0-37.0); MEAN CORPUSCULAR VOLUME 92.7 FL (81.0-99.0); PLATELET COUNT 292 /CUMM (130-400); RBC DISTRIBUTION WIDTH 14.3 % (11.5-14.5); RED BLOOD CELL CT 4.29 /CUMM (4.20-5.40); WHITE BLOOD CELL COUNT 11.3 /CUMM (4.8-10.8)
[2017-01-10 09:25] VITALS: BP 170/98
--- NOTE | 2017-01-10 09:41 | NUR ---
0930- B/P 170/[address] JOSUE AND DR. SAWANT. NORVASC 5 MG ORDERED. WILL CONTINUE TO MONITOR.
--- NOTE | 2017-01-10 10:53 | PN- Student ---
Subjective Subjective: Patient was seen and examined this morning. This is hospital day 3 and upon my arrival this morning pt was resting comfortably. Says her pain is still subjectively lingering. She said her pain is better managed on this current regimen consisting of oxycodone and morphine. She is also concerned about her left percutaneous nephrostomy bag where the urine was clear/yellow yesterday however today it appears more reddish in color. Patient denies any fever, chills, chest pain, SOB, palpitations, dysuria, diarrhea or alberto blood per rectum. Objective Objective: Vital Signs Date Time Temp Pulse Resp B/P B/P Pulse O2 O2 Flow FiO2 Mean Ox Delivery Rate 01/10 1051 70 170/98 01/10 0925 70 170/98 01/10 0653 98.1 62 18 150/100 93 Room Air 01/09 2256 99.0 63 20 140/80 94 Room Air 01/09 1423 97.7 62 20 164/88 93 Intake & Output 01/10 1600 01/10 0800 01/10 0000 Intake Total 20 450 Output Total 750 1200 Balance -730 -750 Intake, IV 20 Intake, Oral 450 Number 0 Bowel Movements Output, Urine 750 1200 Patient 121 lb Weight Physical Exam: General- Patient is a well-nourished, well-appearing female in no acute distress HEENT- NCAT, Pupils reactive to light, EOMI Cardio- Normal S1/S2 without any M/G/R Resp- Lungs clear to ascultation bilaterally GI- Abdomen soft, mild diffuse tenderness, non-distended, bowel sounds intact, left percuntaneous nephrostomy in place draining reddish colored urine Laboratory Tests 01/10 0620 Hematology CBC w Diff NO MAN DIFF REQ WBC (4.8 - 10.8 /CUMM) 11.3 H RBC (4.20 - 5.40 /CUMM) 4.29 Hgb (12.0 - 16.0 G/DL) 13.3 Hct (37 - 47 %) 39.8 MCV (81.0 - 99.0 FL) 92.7 MCH (27.0 - 31.0 PG) 30.9 RDW (11.5 - 14.5 %) 14.3 Plt Count (130 - 400 /CUMM) 292 MPV (7.4 - 10.4 FL) 9.0 Gran % (42.2 - 75.2 %) 73.7 Lymphocytes % (20.5 - 51.1 %) 15.1 L Monocytes % (1.7 - 9.3 %) 10.2 H Eosinophils % (0 - 5 %) 0.4 Basophils % (0.0 - 2.0 %) 0.6 Absolute Granulocytes (1.4 - 6.5 /CUMM) 8.3 H Absolute Lymphocytes (1.2 - 3.4 /CUMM) 1.7 Absolute Monocytes (0.10 - 0.60 /CUMM) 1.2 H Absolute Eosinophils (0.0 - 0.7 /CUMM) 0 Absolute Basophils (0.0 - 0.2 /CUMM) 0.1 PUBS MCHC (33.0 - 37.0 G/DL) 33.3 Results Results: Laboratory Tests 01/10/17 0620: CBC w Diff NO MAN DIFF REQ, RBC 4.29, MCV 92.7, MCH 30.9, RDW 14.3, MPV 9.0, Gran % 73.7, Lymphocytes % 15.1 L, Monocytes % 10.2 H, Eosinophils % 0.4, Basophils % 0.6, Absolute Granulocytes 8.3 H, Absolute Lymphocytes 1.7, Absolute Monocytes 1.2 H, Absolute Eosinophils 0, Absolute Basophils 0.1, PUBS MCHC 33.3 01/09/17 0820: Anion Gap 9, Estimated GFR > 60, BUN/Creatinine Ratio 18.6, CBC w Diff NO MAN DIFF REQ, RBC 4.05 L, MCV 92.4, MCH 30.9, RDW 14.5, MPV 8.9, Gran % 73.8, Lymphocytes % 14.5 L, Monocytes % 10.7 H, Eosinophils % 0.4, Basophils % 0.6, Absolute Granulocytes 9.1 H, Absolute Lymphocytes 1.8, Absolute Monocytes 1.3 H, Absolute Eosinophils 0, Absolute Basophils 0.1, PUBS MCHC 33.4 01/08/17 0459: Anion Gap 7, Estimated GFR 56 L, Glucose 112 H, Calcium 8.3 L, Phosphorus 3.8 , Magnesium 1.7, Total Bilirubin 0.6, AST 21, ALT 28, Albumin 3.3 L, PT 11.6, INR 1.11, CBC w Diff NO MAN DIFF REQ, RBC 3.93 L, MCV 93.4, MCH 30.9, RDW 14.8 H, MPV 8.6, Gran % 76.8 H, Lymphocytes % 13.5 L, Monocytes % 9.4 H, Eosinophils % 0, Basophils % 0.3, Absolute Granulocytes 9.5 H, Absolute Lymphocytes 1.7, Absolute Monocytes 1.2 H, Absolute Eosinophils 0, Absolute Basophils 0, PUBS MCHC 33.0 01/08/17 0000: Urinalysis LIGHT H, Urine Color BLDY H, Urine Clarity TURBD H, Urine pH 6.0, Ur Specific [place] 1.015, Urine Protein 100 H, Urine Ketones NEG, Urine Nitrite NEG, Urine Bilirubin NEG@ICTO, Urine Urobilinogen 0.2, Ur Leukocyte Esterase NEG, Ur Microscopic SEDIMENT EXAMINED, Urine RBC PACKD H, Urine Hemoglobin LARGE H, Urine Glucose NEG 01/07/17 1752: Anion Gap 10, Estimated GFR > 60, BUN/Creatinine Ratio 14.4, Glucose 131 H, Lactic Acid 1.2, Calcium 9.2, Lipase 41, CBC w Diff MAN DIFF ORDERED, RBC 4.53, MCV 93.6, MCH 30.8, RDW 14.5, MPV 8.6, Gran % 93.1 H, Lymphocytes % 5.1 L, Monocytes % 1.3 L, Eosinophils % 0.1, Basophils % 0.4, Absolute Granulocytes 14.2 H, Segmented Neutrophils 85 H, Band Neutrophils 4, Absolute Lymphocytes 0.8 L, Lymphocytes 6 L, Monocytes 4, Absolute Monocytes 0.2, Eosinophils 1, Absolute Eosinophils 0, Absolute Basophils 0.1, Platelet Estimate ADEQUATE, Normochromic RBCs VERIFIED, Anisocytosis 1+, Macrocytic Cells 1+, PUBS MCHC 32.9 L Microbiology 01/08 URINE ROUT: Urine Culture - COMP 01/07 2355 BLOOD: Blood Culture - RES 01/07 2350 BLOOD: Blood Culture - RES 01/07 2330 UPPER RESP: Surveillance Culture - COMP 01/07 2330 GI: Surveillance Culture - COMP Assessment/Plan Assessment: Milka Chandler is a is a 61-year-old female with a past medical history of hematuria, migraines, stress incontinence, depression and tobacco abuse. She is on day 3 of hospital admission s/p uretal stent and s/p left percutaneous nephrostomy draining reddish colored urine. She was NPO overnight and receiving IV Vancomycin and Ceftazadime. There was a small collection of fluid found in the left retroperitoneum and intraperitoneum. She is scheduled for an anterograde cystoscropy and removal of the left percuntaneous nephrostomy later today. 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 Patient is currently NPO and will be having a urological procedure this afternoon for correction of the stent and/or removal of the urinoma. Patient has been having worsening symptoms and poor pain management. -Monitor nephrostomy for changes in urine color -Oxycodone and Morphine for pain control -Zofran for nausea -IV Vanco/Ceftazadime -urology procedure and follow-up -Waiting for cultures DVT ppx- ALPS Code status- Full code
--- NOTE | 2017-01-10 12:08 | NUR ---
1145- PT LEFT FLOOR VIA STRETCHER FOR CT SCAN.
--- NOTE | 2017-01-10 12:53 | CT SCAN REPORT ---
EXAMINATION: CT ABDOMEN AND PELVIS WITH CONTRAST CLINICAL INFORMATION: Abdominal pain. Nausea. Rule out neuroma. Recent complicated ureteral stent placement. No nephrostomy. COMPARISON: 01/08/2015 TECHNIQUE: Multidetector volumetric imaging was performed of the abdomen and pelvis before and after the IV administration of 94 mL of Optiray 320 intravenous contrast. Sagittal and coronal reformatted images were obtained on the technologist's workstation. DLP: 266 mGy-cm FINDINGS: LUNG BASES: Mild bilateral dependent atelectasis. LIVER, GALLBLADDER, AND BILIARY TREE: The liver is normal in size, shape, and attenuation. A punctate calcification is again seen within hepatic segment 4. No focal hepatic lesion or biliary ductal dilatation is present. The gallbladder is unremarkable with no evidence of radiopaque gallstones, gallbladder wall thickening, or obvious pericholecystic inflammatory changes. PANCREAS: Unremarkable. SPLEEN: Unremarkable. ADRENAL GLANDS: Unremarkable. KIDNEYS AND URETERS: The left nephrostomy tube is appropriately situated, terminating in the left renal pelvis. The left double-J ureteral stent has been removed. There is a small collection of gas and fluid just medial to the left proximal ureter in the medial perinephric space, measuring 2.3 x 1.6 x 4.0 cm, similar in size to 2.5 x 0.9 x 4.0 cm previously. Contrast material is no longer evident within this collection. The more dense fluid in the posterior perinephric space appears unchanged from prior. Small amount of fluid along the anterior fascia is decreased. There is a small amount of peritoneal free fluid in the pelvis. Fluid is present in the presacral space in the pelvis, similar to prior. Kidneys enhance symmetrically. No hydronephrosis. No nephrolithiasis. BLADDER: Decompressed. GASTROINTESTINAL TRACT: A large amount of stool is present within the cecum, ascending colon, and transverse colon. There is mild gaseous distention of the transverse colon which may be due to mild ileus. No bowel wall thickening. ABDOMINAL WALL: No significant hernia is appreciated. LYMPH NODES: Normal. VASCULAR: At the splenic calcifications are again seen within the abdominal aorta and iliac arteries. No aneurysmal dilatation. Prominent periuterine veins are again noted bilaterally. PELVIC VISCERA: As on the prominent periuterine veins, the uterus is normal in appearance. Ovaries are unremarkable. As pain previously, there is significant edema in the presacral space. OSSEOUS STRUCTURES: No acute skeletal abnormalities. IMPRESSION: 1. Small residual 2.3 x 1.6 x 4 cm collection of fluid and gas in the medial perinephric space just medial to the renal pelvis and proximal ureter at the site of prior ureteral perforation. This is minimally increased in size from 2.5 x 0.9 x 4 cm previously. The more dense fluid in the posterior perinephric space appears unchanged from prior. 2. Large amount of well-formed stool in the cecum, ascending colon, and proximal transverse colon with borderline dilatation of the transverse colon. This could be due to a mild ileus or constipation.
--- NOTE | 2017-01-10 13:29 | PN- Att Addend ---
Attending Addendum Attending Brief Note Pt seen and examined with the entire team at bedside. Later I went back after the urologist had seen her as well. She is a 61-year-old female who is here with what is presumed to be a complication of her recent stenting with a ureteral rupture and a fluid collection around there and is status post a left-sided nephrostomy tube by IR on Tuesday and bedside removal of her ureteral stent by the covering urologist. Today her symptoms of abdominal pain are worse and she was worried about hematuria and the nephrostomy tube although her white count is better and her renal function is stable. She has been placed empirically on broad-spectrum anti-medics of Vanco and Ceftaz to cover for the possibility of any septicemia in the setting off the ureteral perforation. After speaking to Dr. Mccarty and the patient at length, we repeated the CT abdomen and pelvis with IV contrast as Dr. Mccarty was worried that her symptoms were getting worse. I just communicated the results of the CT with Dr. Mccarty with regard to the fluid collection which is still there and has minimally increased with constipation and an early mild ileus. At this point Dr. Mccarty is going to work with IR in trying to remove the nephrostomy tube and place an antegrade stent versus she's going to take the patient to the OR directly for a retrograde stent. We'll continue to keep patient nothing by mouth, IV fluids. I explained to the patient at length that I think that she has a diagnosis of hypertension given the persistently elevated blood pressures although the lack of LVH on the EKG is reassuring. We'll start her on low-dose Norvasc and follow the pressure closely. Once her procedure is done, we will aggressively pursue a bowel regimen to help the constipation. She doesn't want Dilaudid, we'll stop that and keep the Roxicodone and morphine for pain and follow closely.
--- NOTE | 2017-01-10 13:47 | NUR ---
1445- BLOOD PRESSURE RECHECKED: 188/102. NORVASC 5 MG GIVEN AT 10:51. PT ALSO COMPLAINING OF HEADACHE. DR. JOSUE NOTIFIED. ADDITIONAL 5MG NORVASC TO BE ORDERED.
--- NOTE | 2017-01-10 14:07 | PN- Housestaff ---
Subjective Follow-up For: Hematuria Perforated ureter Subjective: Patient seen and examined. She is seen lying flat in bed. She appears uncomfortable, but in no acute distress. She states that her pain mildly improved after the morphine was switched to dilaudid yesterday but after a few doses she became floridly nauseated. He abdominal pain is now moderate/severe and is not well controlled. She is concerned that her abdominal pain is getting worse and that the nephrostomy drain is now bloody. She still admits to persistent nausea and feels bloated/constipated. Otherwise she denies any headache, fever, chills, chest pain, palpitations, shortness of breath, cough, vomiting, diarrhea. No overnight events reported. Review of Systems Constitutional: Reports: see HPI. Objective Last 24 Hrs of Vital Signs/I&O Vital Signs Date Time Temp Pulse Resp B/P B/P Pulse O2 O2 Flow FiO2 Mean Ox Delivery Rate 01/10 1051 70 170/98 01/10 0925 70 170/98 01/10 0653 98.1 62 18 150/100 93 Room Air 01/09 2256 99.0 63 20 140/80 94 Room Air 01/09 1423 97.7 62 20 164/88 93 Intake & Output 01/10 1600 01/10 0800 01/10 0000 Intake Total 20 450 Output Total 417 520 8424 Balance -550 -730 -750 Intake, IV 20 Intake, Oral 450 Number 0 Bowel Movements Output, Urine 794 100 1180 Patient 54.885 kg Weight Physical Exam General Appearance: Alert, Oriented X3, Cooperative, No Acute Distress Other Physical Findings: General - well developed, thin middled aged woman in no acute distress HEENT - NCAT, PERRL, EOMI, anicteric sclera CVS - S1, S2 w/o m/g/r Resp - CTA bilaterally GI - soft, mild diffuse tenderness, nondistended, bowel sounds intact, no bruising, left percutaneous nephrostomy in placed draining clear/bloody urine Neuro - Awake and alert, CN II - XII grossly intact Ext - normal pulses, no cyanosis/clubbing/edema Current Medications: Current Medications Sig/Melania Start time Last Medication Dose Route Stop Time Status Admin Acetaminophen 325 MG Q6P PRN 01/07 2115 AC 01/09 PO 1357 Amlodipine Besylate 10 MG DAILY 01/11 1000 AC PO Amlodipine Besylate 5 MG ONCE ONE 01/10 1400 DC PO 01/10 1401 Amlodipine Besylate 5 MG DAILY 01/10 1000 DC 01/10 PO 1051 Bupropion HCl 150 MG 0800 01/10 0800 AC 01/10 PO 0754 Ceftazidime 1,000 MG IQ8 01/08 0000 AC 01/10 IV 0754 Dextrose/Sodium 1,000 ML Q13H 01/10 0845 AC 01/10 Chloride IV 01/10 2144 0911 Docusate Sodium 100 MG DAILY 01/10 1000 AC 01/10 PO 1051 Hydromorphone HCl 0.6 MG Q4P PRN 01/09 2145 DC IV Hydromorphone HCl 1 MG Q4P PRN 01/09 1000 DC 01/09 IV 1003 Metoclopramide HCl 10 MG Q6P PRN 01/09 1200 AC 01/09 IV 1201 Morphine Sulfate 1 MG Q4P PRN 01/09 2145 AC 01/10 IV 0902 Nicotine 14 MG DAILY 01/08 1301 AC 01/10 TOP 0754 Ondansetron HCl 4 MG Q4P PRN 01/07 2300 AC 01/09 IV 1043 Oxycodone HCl 5 MG .STK-MED ONE 01/10 0545 DC PO 01/10 0546 Oxycodone HCl 5 MG Q6 01/09 1200 AC 01/10 PO 1138 Polyethylene Glycol 17 GM DAILY PRN 01/10 0845 AC PO Senna/Docusate Sodium 2 TAB DAILY 01/10 1000 AC 01/10 PO 1051 Sertraline HCl 50 MG 1700 01/10 1700 AC PO Sertraline HCl 50 MG DAILY 01/09 1000 DC PO Simethicone 80 MG Q6P PRN 01/10 0030 AC 01/10 PO 0627 Vancomycin HCl 1,000 MG 2200 01/07 2300 AC 01/09 Sodium Chloride 250 ML IV 2157 Last 24 Hrs of Lab/Raudel Results Last 24 Hrs of Labs/Mics: Laboratory Tests 01/10/17 0620: CBC w Diff NO MAN DIFF REQ, RBC 4.29, MCV 92.7, MCH 30.9, RDW 14.3, MPV 9.0, Gran % 73.7, Lymphocytes % 15.1 L, Monocytes % 10.2 H, Eosinophils % 0.4, Basophils % 0.6, Absolute Granulocytes 8.3 H, Absolute Lymphocytes 1.7, Absolute Monocytes 1.2 H, Absolute Eosinophils 0, Absolute Basophils 0.1, PUBS MCHC 33.3 Assessment/Plan Assessment: Ms. Chandler is a 61 year old female with past medical history significant for recent onset of gross hematuria after on the morning of day of admission, stress incontinence, migraines, depression, tobacco abuse who presented to the ED today for abdominal pain, dry heaving, nausea post urological procedure 01/08/17. Hospital Day 3 Patient continues to remain afebrile with improving leukocytosis while on intravenous antibiotics. Patients abdominal pain is worsening despite an aggressive narcotic medication regimen. Patient was made NPO last night for a possible urologic procedure today. Dr. Mccarty evaluated the patient this afternoon and requested a CT abdomen/pelvis with IV contrast to further assess her abdominal complaints. Patient remains NPO for a possible urologic intervention with either IR or Dr. Mccarty. Perforated Ureter s/p Stent Patient initially seen for evaluation of hematuria and imaging findings suggestive of a left ureter mass for which she underwent placement of a stent that was complicated with a perforation. A percutaneous nephrostomy tube was placed by interventional radiology without difficulty. Patient was initially monitored in the ICU on intravenous antibiotics before beings transferred to the general medicine floor for further management and care. CT abdomen/pelvis with IV contrast demonstrated a small residual fluid collection with gas with large amount of stool in the colon. -General Medicine -Pain control -Ceftazidime 1g IV Q8H -Vancomycin 1g IV Daily -Zofran 4mg IV Q6H PRN Nausea -Reglan 10mg IV Q6H PRN Nausea -Urology consult -Follow up cultures & sensitivities Depression -Buproprion 150mg PO Daily -Sertraline 50mg PO Daily Current Everyday Smoker-Nicotine 14mg Patch Daily Pain Plan-Acetaminophen/Oxycodone scheduled/Morphine Bowel Regimen-Senna/Colace/Miralax Diet-Regular Diet, NPO overnight DVT PPx-ALPS Code Status- FULL CODE Problem List: 1. Ureter injury Pain Ratin Pain Location: Abdomen Pain Goal: Pain 7 or less Pain Plan: See assessment Tomorrow's Labs & Rationales: CBC - infection monitoring
[2017-01-10 14:15] VITALS: BP 162/99
[2017-01-10 16:16] VITALS: BP 178/98
--- NOTE | 2017-01-10 16:54 | NUR ---
1630-PT LEFT FLOOR VIA STRETCHER FOR OR PROCEDURE WITH DR. LYMAN, UROLOGIST.
--- NOTE | 2017-01-10 18:12 | Operative Report ---
Operative/Inv Procedure Report Surgery Date: 01/10/17 Name of Procedure: cystoscopy, left retrograde pyelogram, stent placement, possible ureteroscopy Pre-Operative Diagnosis: left ureteral injury Post-Operative Diagnosis: same Estimated Blood Loss: less than 50ml Surgeon/News Broadcaster: Darlene Mirza Anesthesia: local monitored anesthesi Implants: left ureteral stent Drains: left ureteral stent Specimens: none Complications: none Condition: stable Operative Indication: left ureteral injury with nephrostomy tube Operative/Procedure Note Note: patient consented for cystoscopy, left retrograde pyelogram, stent placement possible ureteroscopy. The risks, benefits and alternatives were given. All questions were answered. Patient was taken to the operating room and placed on the operating table. Time out was performed. She did not recieve IV antiobiotics as she received it on the floor an hour previously. She was given TEVA and placed in the dorsal lithotomy position. She was prepped and draped in the standard sterile fashion. Cystoscopy was performed and the bladder was globally inspected. There were no bladder lesions, masses, tumors or defects. The ureteral orifices were in their normal anatomic position. The left ureter had a clot over it. The left ureter was cannulated with a 5fr open ended catheter and a retrograde pyelogram was performed. She had a Y-shaped renal pelvis that split into the upper and middle pole and lower pole. There was minimal extravasation noted at the UJP site. The nephrostomy tube was easily identified on the initial clinical manager that was taken at the start of surgery. A Sensor like guide wire was placed and it was difficult to determine if it was in the renal pelvis even with RPG and cross table flouroscopy. As a result, a ureteroscopy was performed after a 25cm ureteral access sheath was placed under flouroscopy to ensure no further injury to the UPJ area as she had a short ureter. The sheath was placed easily and the flexible digital ureteroscopy was placed. The UPJ injury could be appreciated and it took some effort but the ureteroscopy was able to be traversed to the normal renal pelvic area and the nephrostomy tube was visualized. The Sensor like wire was placed into the upper pole and the wire was then used to placed a 6x22cm stent with the cystoscope. The stent was seen to be in good position both flouroscopically and cystoscopically. The patient tolerated the procedure well. Findings: left UPJ ureteral injury seen by ureteroscopy and on RPG NT seen in good position Discharge Disposition: PACU
[2017-01-10 18:45] VITALS: BP 158/98
--- NOTE | 2017-01-10 19:58 | NUR ---
1844- PT RETURNED TO FLOOR VIA STRETCHER FROM PACU. REPORT REC'D FROM CHRISTINA CERTIFIED NUTRITIONIST. PT HAD CYSTOSCOPY WITH STENT PLACEMENT TO L. PLAN IS TO REMOVE L NEPHROSTOMY TUBE TOMORROW AND DISCHARGE PT. VSS. NEPHROSTOMY TUBE DRAINING DARK PINK URINE. + BS. DIET TO BE ORDERED.
[2017-01-10 22:46] VITALS: BP 154/88
--- NOTE | 2017-01-10 23:13 | RADIOLOGY REPORT ---
EXAMINATION: XR ABDOMEN CLINICAL INDICATION: Left cystoscopy, ureteroscopy, nephroscopy. Stent placement. COMPARISON: CT from 01/10/2017 TECHNIQUE: 10 procedural fluoroscopic images of the abdomen. Total fluoroscopic time 35.5 seconds. FINDINGS: Initial image demonstrates a percutaneous nephrostomy tube in the left kidney. Subsequent images demonstrate contrast injection into the left ureter and collecting system. There is irregularity of the ureter with a filling defect noted. Contrast fills a possible collection which is in the region of the renal pelvis. The renal calyces are not well opacified. Final imaging demonstrates stent placement within the left ureter extending from the kidney to the bladder. IMPRESSION: Contrast within a perinephric collection. Ureteral stent placement. Please refer to operative report for additional information.
--- NOTE | 2017-01-11 01:25 | NUR ---
PATIENT EXPERIENCING PAIN IN ABDOMEN WHEN FLUSHING NEPHROSTOMY TUBE. MD TIPTON PAGED AND AWARE
[2017-01-11 02:33] VITALS: BP 190/100
[2017-01-11 04:23] VITALS: BP 178/100
[2017-01-11 06:58] VITALS: BP 158/80
--- NOTE | 2017-01-11 07:14 | PN- Housestaff ---
LIUS MANUEL ACOSTA,LB 01/11/17 0714: Subjective Follow-up For: Hematuria Perforated ureter Subjective: Patient seen and examined. She is seen lying flat in bed resting comfortably. She appears to be in no acute distress. She reports that her abdominal pain is still present but much improved after the stent was placed last evening. Her abdominal pain is still generalized but mildly worse on the left side. She states that she is concerned that she hasn't had a bowel movement "since Tuesday " and is requesting 'something' for it. Otherwise she denies any fever, chills, headache, chest pain, palpitations, shortness of breath, nausea, vomiting diarrhea. No overnight events reported. Review of Systems Constitutional: Reports: see HPI. Objective Last 24 Hrs of Vital Signs/I&O Vital Signs Date Time Temp Pulse Resp B/P B/P Pulse O2 O2 Flow FiO2 Mean Ox Delivery Rate 01/11 0850 140/88 01/11 0658 98.2 68 16 158/80 94 Room Air 01/11 0423 178/100 01/11 0328 190/100 01/11 0233 98.0 68 16 190/100 92 Room Air 01/10 2246 98.6 71 20 154/88 92 Room Air 01/10 1845 98.5 63 18 158/98 95 Room Air 01/10 1616 178/98 01/10 1440 64 188/102 01/10 1415 97.9 61 20 162/99 93 Room Air Intake & Output 01/11 1600 01/11 0800 01/11 0000 Intake Total 50 100 Output Total 590 1050 Balance -540 -950 Intake, Oral 50 100 Output, Urine 590 1050 Physical Exam General Appearance: Alert, Oriented X3, Cooperative, No Acute Distress Assessment/Plan Assessment: Ms. Chandler is a 61 year old female with past medical history significant for recent onset of gross hematuria after on the morning of day of admission, stress incontinence, migraines, depression, tobacco abuse who presented to the ED today for abdominal pain, dry heaving, nausea post urological procedure 01/08/17. Hospital Day 4 Patient underwent repeat stent placement yesterday afternoon with Dr. Mccarty and tolerated the procedure well. She had the nephrostomy tube removed today, which she also tolerated well. Patient endorses abdomnal discomfort, that is markedly improved over previous days; she believes this is due to her constipation. She was given a dulcolax supposiotory and fleet enema that allowed her to have a bowel movment. She is discharge to home with amlodipine, a short prescription for pain medication with a bowel regimen and instruction to follow up with Dr. Mccarty within one week and her PCP for further evaluation of her hypertension. Perforated Ureter s/p Stent Patient initially seen for evaluation of hematuria and imaging findings suggestive of a left ureter mass for which she underwent placement of a stent that was complicated with a perforation. A percutaneous nephrostomy tube was placed by interventional radiology without difficulty. Patient was initially monitored in the ICU on intravenous antibiotics before beings transferred to the general medicine floor for further management and care. CT abdomen/pelvis with IV contrast demonstrated a small residual fluid collection with gas with large amount of stool in the colon. -General Medicine -Pain control -Ceftazidime discontinued -Vancomycin discontinued -Zofran 4mg IV Q6H PRN Nausea -Reglan 10mg IV Q6H PRN Nausea -Urology consult -Follow up cultures & sensitivities Hypertension Possibly secondary to pain, patients blood pressure has been consistently elevated during admission. -Amlodipine 10mg PO Daily -Outpatient follow up Depression -Buproprion 150mg PO Daily -Sertraline 50mg PO Daily Current Everyday Smoker-Nicotine 14mg Patch Daily Pain Plan-Acetaminophen/Oxycodone scheduled/Morphine Bowel Regimen-Senna/Colace/Miralax Diet-Regular Diet, NPO overnight DVT PPx-ALPS Code Status- FULL CODE Problem List: 1. Ureter injury Pain Ratin Pain Location: Abdomen Pain Goal: Pain 7 or less Pain Plan: See assessment Tomorrow's Labs & Rationales: None JOSELO ACOSTA,FREDIS 01/11/17 1342: Attending MD Review Statement Attending Statement Attending MD Statement: examined this patient, discuss w/resident/PA/COUNTER DISH [employer]RIER, agreed w/resident/PA/COUNTER DISH CARRIER, reviewed EMR data (avail), discussed with nursing, discussed with case mgmt, reviewed images Attending Assessment/Plan: Patient is doing markedly better today. When I saw her, she had come back from removal of the nephrostomy tube and was walking around. Dr. Mccarty took her to the OR late yesterday and put in a UPJ stent. Today IR took out the nephrostomy tube. Her white count is down and her other numbers are stable. I stopped the broad-spectrum antibiotics now that the instrumentation was done and all the cultures are negative. The plan is to have her walk around, encourage by mouth intake, give the aggressive bowel regimen to make sure she has a bowel movement and if all that is okay she will leave with close outpatient follow-up specifically follow-up with Dr. Mccarty. Her pressure is fairly well controlled on the current dose of Norvasc.
[2017-01-11 08:03] LABS: ABSOLUTE BASOPHIL COUNT 0 /CUMM (0.0-0.2); ABSOLUTE EOSINOPHIL COUNT 0.1 /CUMM (0.0-0.7); ABSOLUTE GRANULOCYTE CT 7.9 /CUMM (1.4-6.5); ABSOLUTE LYMPH COUNT 1.4 /CUMM (1.2-3.4); BASOPHIL % 0.3 % (0.0-2.0); EOSINOPHIL % 1.1 % (0-5); GRANULOCYTE % 75.9 % (42.2-75.2); HEMATOCRIT 38.8 % (37-47); MEAN CORPUSCULAR HGB 31.1 PG (27.0-31.0); MEAN CORPUSCULAR HGB CONC 33.5 G/DL (33.0-37.0); MEAN CORPUSCULAR VOLUME 92.7 FL (81.0-99.0); MEAN PLATELET VOLUME 9.2 FL (7.4-10.4); PLATELET COUNT 290 /CUMM (130-400); RBC DISTRIBUTION WIDTH 14.1 % (11.5-14.5); RED BLOOD CELL CT 4.19 /CUMM (4.20-5.40); WHITE BLOOD CELL COUNT 10.4 /CUMM (4.8-10.8)
[2017-01-11 08:50] VITALS: BP 140/88
--- NOTE | 2017-01-11 09:17 | PN- Urology ---
Subjective Subjective: pt doing better. still with abd discomfort and back pain. She was given an enema this morning as she has not had a BM in four days. No N/V. elevatred BP overnight. Objective Vital Signs and I&Os Vital Signs Date Time Temp Pulse Resp B/P B/P Pulse O2 O2 Flow FiO2 Mean Ox Delivery Rate 01/11 0850 140/88 01/11 0658 98.2 68 16 158/80 94 Room Air 01/11 0423 178/100 01/11 0328 190/100 01/11 0233 98.0 68 16 190/100 92 Room Air 01/10 2246 98.6 71 20 154/88 92 Room Air 01/10 1845 98.5 63 18 158/98 95 Room Air 01/10 1616 178/98 01/10 1440 64 188/102 01/10 1415 97.9 61 20 162/99 93 Room Air 01/10 1051 70 170/98 01/10 0925 70 170/98 Intake & Output 01/11 1600 01/11 0800 01/11 0000 01/10 1600 01/10 0800 01/10 0000 Intake Total 50 100 600 20 450 Output Total 590 1050 1710 071 1223 Balance -540 -950 -400 -730 -750 Intake, IV 600 20 Intake, Oral 50 100 450 Number 0 Bowel Movements Output, Urine 590 1050 [phone] Patient 54.885 kg Weight Physical Exam: awake and alert, NAD lying in bed Abd soft, mildly distended with tenderness no tyson in place, left NT in place and draining light red colored urine Physical Exam General Appearance: well developed/nourished, no apparent distress, alert, awake , comfortable Head: atraumatic, normal appearance Ears, Nose, Throat: normal ENT inspection Neck: normal inspection Respiratory: normal breath sounds, no respiratory distress Abdomen: soft, tenderness Rectal: deferred Extremities: normal inspection Neurologic/Psychiatric: awake, alert, oriented x 3 Skin: intact, normal color, warm/dry Reproductive: Normal female genitalia Pelvic: Appearance Normal Current Medications: Current Medications Sig/Melania Start time Last Medication Dose Route Stop Time Status Admin Acetaminophen 325 MG Q6P PRN 01/07 2115 AC 01/09 PO 1357 Amlodipine Besylate 10 MG DAILY 01/11 1000 DC PO Amlodipine Besylate 10 MG DAILY 01/11 0315 AC 01/11 PO 0328 Amlodipine Besylate 10 MG ONCE ONE 01/11 0245 CAN PO 01/11 0246 Amlodipine Besylate 5 MG ONCE ONE 01/10 1400 DC 01/10 PO 01/10 1401 1440 Amlodipine Besylate 5 MG DAILY 01/10 1000 DC 01/10 PO 1051 Bisacodyl 10 MG ONCE ONE 01/11 0815 DC 01/11 HI 01/11 0816 0843 Bupropion HCl 150 MG 0800 01/10 0800 AC 01/11 PO 0815 Ceftazidime 1,000 MG IQ8 01/08 0000 AC 01/11 IV 0815 Dextrose/Sodium 1,000 ML Q13H 01/10 0845 DC 01/10 Chloride IV 01/10 2144 0911 Docusate Sodium 100 MG DAILY 01/10 1000 AC 01/11 PO 0815 Hydromorphone HCl 0.6 MG Q4P PRN 01/09 2145 DC IV Metoclopramide HCl 10 MG Q6P PRN 01/09 1200 AC 01/09 IV 1201 Morphine Sulfate 2 MG Q4P PRN 01/11 0030 AC 01/11 IV 0036 Morphine Sulfate 4 MG Q3P PRN 01/10 1615 AC 01/10 IV 1911 Morphine Sulfate 4 MG Q4P PRN 01/10 1445 DC IV Morphine Sulfate 1 MG Q4P PRN 01/09 2145 DC 01/10 IV 0902 Nicotine 14 MG DAILY 01/08 1301 AC 01/11 TOP 0815 Ondansetron HCl 4 MG Q4P PRN 01/07 2300 AC 01/09 IV 1043 Oxycodone HCl 5 MG .STK-MED ONE 01/10 1139 DC PO 01/10 1140 Oxycodone HCl 5 MG Q6 01/09 1200 DC 01/10 PO 1138 Patient Medication 1 ED .STK-MED ONE 01/10 1409 DC Teaching ED 01/10 1410 Polyethylene Glycol 17 GM DAILY PRN 01/10 0845 AC 01/10 PO 2228 Senna/Docusate Sodium 2 TAB DAILY 01/10 1000 AC 01/11 PO 0815 Sertraline HCl 50 MG 1700 01/10 1700 AC 01/10 PO 1906 Simethicone 80 MG Q6P PRN 01/10 0030 AC 01/10 PO 0627 Vancomycin HCl 1,000 MG 2200 01/07 2300 AC 01/10 Sodium Chloride 250 ML IV 2229 Results Last 48 Hours of Labs: Laboratory Tests 01/11 01/10 0610 0620 Chemistry Sodium (137 - 145 mmol/L) 133 L Potassium (3.5 - 5.1 mmol/L) 3.7 Chloride (98 - 107 mmol/L) 93 L Carbon Dioxide (22 - 30 mmol/L) 29 Anion Gap (5 - 16) 11 BUN (7 - 17 mg/dL) 9 Creatinine (0.5 - 1.0 mg/dL) 0.6 Estimated GFR (>60 ml/min) > 60 BUN/Creatinine Ratio (7 - 25 %) 15.0 Hematology CBC w Diff NO MAN DIFF REQ NO MAN DIFF REQ WBC (4.8 - 10.8 /CUMM) 10.4 11.3 H RBC (4.20 - 5.40 /CUMM) 4.19 L 4.29 Hgb (12.0 - 16.0 G/DL) 13.0 13.3 Hct (37 - 47 %) 38.8 39.8 MCV (81.0 - 99.0 FL) 92.7 92.7 MCH (27.0 - 31.0 PG) 31.1 H 30.9 RDW (11.5 - 14.5 %) 14.1 14.3 Plt Count (130 - 400 /CUMM) 290 292 MPV (7.4 - 10.4 FL) 9.2 9.0 Gran % (42.2 - 75.2 %) 75.9 H 73.7 Lymphocytes % (20.5 - 51.1 %) 13.2 L 15.1 L Monocytes % (1.7 - 9.3 %) 9.5 H 10.2 H Eosinophils % (0 - 5 %) 1.1 0.4 Basophils % (0.0 - 2.0 %) 0.3 0.6 Absolute Granulocytes (1.4 - 6.5 /CUMM) 7.9 H 8.3 H Absolute Lymphocytes (1.2 - 3.4 /CUMM) 1.4 1.7 Absolute Monocytes (0.10 - 0.60 /CUMM) 1.0 H 1.2 H Absolute Eosinophils (0.0 - 0.7 /CUMM) 0.1 0 Absolute Basophils (0.0 - 0.2 /CUMM) 0 0.1 PUBS MCHC (33.0 - 37.0 G/DL) 33.5 33.3 Assessment/Plan Assessment/Plan 61yo female with ureteral injury s/p replacement of stent. REcommend removal of NT in IR suite to ensure it is removed without further complications. If pt stable post removal of NT, then discharge to home with FU with Urology. Please place order for the IR suite [place] removal as i have tried and failed multiple times. Problem List: 1. Ureter injury Core Measures/Miscellaneous Venous Thromboembolism VTE Risk Factors: Age > 40, Smoking VTE Contraindications: No Contraindications VTE Diagnosis: No VTE Type: NONE VTE Confirmed by (Test): NONE Beta Asim Is Beta Asim a Home Med? No Antibiotics Is Patient on Antibiotics? Yes
--- NOTE | 2017-01-11 11:22 | Patient Discharge Instructions ---
Discharge Instructions General Discharge Information Special Instructions: Follow up with your primary care provider within two weeks of discharge. Follow up with Dr. Mccarty, your urologist, by the end of the week. Discuss your elevated blood pressure with your primary care provider. Take amlodipine as directed. Take Senna and Colace daily for constipation while taking pain medication. Acute Coronary Syndrome Inclusion Criteria At DC or during hospital stay patient has or had the following: ACS DIAGNOSIS No Discharge Core Measures Meds if any: Prescribed or Continued at Discharge Meds if any: NOT Prescribed or Continued at Discharge Congestive Heart Failure Inclusion Criteria At DC or during hospital stay patient has or had the following: CHF DIAGNOSIS No Discharge Core Measures Meds if any: Prescribed or Continued at Discharge Meds if any: NOT Prescribed or Continued at Discharge Cerebrovascular accident Inclusion Criteria At DC or during hospital stay patient has or had the following: CVA/TIA Diagnosis No Discharge Core Measures Meds if any: Prescribed or Continued at Discharge Meds if any: NOT Prescribed or Continued at Discharge Venous thromboembolism Inclusion Criteria VTE Diagnosis No VTE Type NONE VTE Confirmed by (Test) NONE Discharge Core Measures - Per Current guidelines, there needs to be overlap - treatment for the first 5 days of Warfarin therapy. - If discharged on Warfarin prior to 5 days of - overlap therapy, the patient will need to be - assessed for post discharge needs including - *Post discharge parental anticoagulation - *Warfarin and/or parental anticoagulation education - *Follow up date to check INR post discharge At least 5 days overlap therapy as Inpatient No Meds if any: Prescribed or Continued at Discharge Note: Overlap Therapy is Warfarin and Anticoagulant Meds if any: NOT Prescribed or Continued at Discharge
--- NOTE | 2017-01-11 11:48 | NUR ---
1115- PT LEFT FLOOR VIA STRETCHER TO IR FOR L NEPHROSTOMY REMOVAL
--- NOTE | 2017-01-11 13:37 | NUR ---
12:35- PT RETURNED TO FLOOR VIA STRETCHER FROM IR. L NEPHROSTOMY TUBE REMOVED. DRESSING TO SITE C,D,I. BM PENDING. PT AMBULATING, +FLATUS. MIRALAX GIVEN.
--- NOTE | 2017-01-11 14:10 | PN- Student ---
Subjective Subjective: Patient was seen and examined this morning on day 4 of hospital admission. She expressed her concern about not being able to eat and her waxing and waning of abdominal pain. Upon my arrival, her pain was subjectively a 5/10. She also requested a liquid breakfast of tea and apple juice. Patient said she got up and walked around for ten minutes this morning but found her self retiring back to bed due to pain and fatigue. She has not been able to pass a bowel movement since Tuesday and she personally requested a suppository. She denies and fever, chills, SOB, chest pain, palpitations, nausea, vomiting, numbness or tingling. Objective Objective: Vital Signs Date Time Temp Pulse Resp B/P B/P Pulse O2 O2 Flow FiO2 Mean Ox Delivery Rate 01/11 0850 140/88 01/11 0658 98.2 68 16 158/80 94 Room Air 01/11 0423 178/100 01/11 0328 190/100 01/11 0233 98.0 68 16 190/100 92 Room Air 01/10 2246 98.6 71 20 154/88 92 Room Air 01/10 1845 98.5 63 18 158/98 95 Room Air 01/10 1616 178/98 01/10 1440 64 188/102 Intake & Output 01/11 1600 01/11 0800 01/11 0000 Intake Total 50 100 Output Total 796 879 9049 Balance -575 -540 -950 Intake, Oral 50 100 Output, Urine 083 413 3710 Physical Exam: General- Patient is a well-nourished, well-appearing female in no acute distress HEENT- NCAT, Pupils reactive to light, EOMI Cardio- Normal S1/S2 without any M/G/R Resp- Lungs clear to ascultation bilaterally GI- Abdomen soft, mild diffuse tenderness, non-distended, bowel sounds intact, left percuntaneous nephrostomy in place draining reddish colored urine Laboratory Tests 01/11 0610 Chemistry Sodium (137 - 145 mmol/L) 133 L Potassium (3.5 - 5.1 mmol/L) 3.7 Chloride (98 - 107 mmol/L) 93 L Carbon Dioxide (22 - 30 mmol/L) 29 Anion Gap (5 - 16) 11 BUN (7 - 17 mg/dL) 9 Creatinine (0.5 - 1.0 mg/dL) 0.6 Estimated GFR (>60 ml/min) > 60 BUN/Creatinine Ratio (7 - 25 %) 15.0 Hematology CBC w Diff NO MAN DIFF REQ WBC (4.8 - 10.8 /CUMM) 10.4 RBC (4.20 - 5.40 /CUMM) 4.19 L Hgb (12.0 - 16.0 G/DL) 13.0 Hct (37 - 47 %) 38.8 MCV (81.0 - 99.0 FL) 92.7 MCH (27.0 - 31.0 PG) 31.1 H RDW (11.5 - 14.5 %) 14.1 Plt Count (130 - 400 /CUMM) 290 MPV (7.4 - 10.4 FL) 9.2 Gran % (42.2 - 75.2 %) 75.9 H Lymphocytes % (20.5 - 51.1 %) 13.2 L Monocytes % (1.7 - 9.3 %) 9.5 H Eosinophils % (0 - 5 %) 1.1 Basophils % (0.0 - 2.0 %) 0.3 Absolute Granulocytes (1.4 - 6.5 /CUMM) 7.9 H Absolute Lymphocytes (1.2 - 3.4 /CUMM) 1.4 Absolute Monocytes (0.10 - 0.60 /CUMM) 1.0 H Absolute Eosinophils (0.0 - 0.7 /CUMM) 0.1 Absolute Basophils (0.0 - 0.2 /CUMM) 0 PUBS MCHC (33.0 - 37.0 G/DL) 33.5 Assessment/Plan Assessment: Milka Chandler is a is a 61-year-old female with a past medical history of hematuria, migraines, stress incontinence, depression and tobacco abuse. She is on day 4 of hospital admission s/p uretal stent cystoscopy and uteroscopy. Her left percutaneous nephrostomy is draining reddish colored urine but IR will be removing that later today. She was still receiving IV Vanco/Ceftaz as of this morning but will be discontinued. Uteroscopy showed ureteral-pelvic junction injury likely contributing to the reddish colored urine in nephrostomy. s/p cystoscopy and uteroscopy: -Aggressive bowel regimen and insist on lots of walking around -Oxycodone and Morphine for pain control -Zofran for nausea -encourage oral/food intake -follow-up with Dr. Mccarty in uroloy New onset HTN: Possibly due to pain but continue to monitor for changes. -continue Norvasc for stable BP control -Folow up with PCP in 2 weeks DVT ppx- ALPS Code status- Full code
[2017-01-11] MEDS ORDERED: AMLODIPINE BESY10 M1 PO (15:08)
[2017-01-11] MEDS ORDERED: MORPHINE SULFAT15 M4 PO (15:08)
[2017-01-11 15:18] VITALS: BP 142/60
[2017-01-11] MEDS ORDERED: DOCUSATE SODIU100 M3 PO (15:32)
[2017-01-11] MEDS ORDERED: SENNA PLUS TAB1 EACH PO (15:32)
--- NOTE | 2017-01-11 15:59 | INTERVENTIONAL RADIOLOGY RPT ---
CLINICAL HISTORY: This patient is a 61-year-old woman with left ureteral injury and diverting percutaneous nephrostomy tube in the left kidney, who presents to interventional radiology for tube removal as the patient is now diverted with an internal stent placed by Dr. Darlene Mccarty who requested the removal. PROCEDURES: 1. Left tube nephrostogram. 2. Left nephrostomy tube removal over a wire. PHYSICIANS: Dr. Anita Pickett (attending). The attending radiologist was present during the procedure and related imaging, and reviewed the report. MONITORING: Continuous blood pressure, pulse oximetry as well as heartrate monitoring was performed by an independent registered nurse. MEDICATIONS: None COMPLICATIONS: None. ESTIMATED BLOOD LOSS: < 5 mL. SPECIMENS: None. CONTRAST: 5 mL Optiray 320 FLUOROSCOPY TIME: 0.3 minutes PROCEDURE NOTE: Informed consent was obtained from the patient prior to the procedure. During this process, the procedure and potential alternatives were explained along with the intended outcome and benefits. The risks of the procedure, including the possibility of an unsuccessful procedure, as well as the risk of not doing the procedure, were discussed. The patient was given the opportunity to ask questions regarding the procedure and appeared competent to make decisions. A signed consent form documenting this discussion was placed in the medical record. A time-out procedure was performed. The patient was placed prone on the fluoroscopy table. The back was prepped and draped in usual sterile fashion. Gentle contrast injection through the existing nephrostomy catheter demonstrated tip position in the renal pelvis. A 0.035 in short stiff glide wire was advanced through the existing 8.5 Fr ReSolve nephrostomy tube into the renal pelvis. The existing tube was removed over the wire with careful attention paid to avoid entanglement with the existing internal ureteral stent. A sterile dressing was applied. FINDINGS: Successful removal of the existing left-sided nephrostomy tube. IMPRESSION: Successful removal of the left nephrostomy tube. PLAN: The patient was stable after the procedure and was transferred to the floor.
--- NOTE | 2017-01-12 14:04 | Discharge Summary ---
Visit Information Visit Dates Admission Date: 01/07/17 Discharge Date: 01/11/17 Hospital Course Course Attending Physician: JOSELO ACOSTA,FREDIS Mcgrath Primary Care Physician: JUMANA LUNDBERG Consulting Request: 1 Consulting Specialty: Urology Consulting Request: 2 Consulting Specialty: Critical Care Hospital Course: 61 year old woman with past medical history of hematuria, stress incontinence, migraines, depression, and tobacco use seen for evaluation of abdominal pain with associated nausea and dry heaves after a urologic procedure. Patient reported hematuria in recents months for which she was evaluated by her urologist Dr. Mccarty for which an outpatient CT abdomen/pelvis reportedly identifiyed a possible left ureteral mass. She was scheudled to undergo a cystoscopy for further evaluation of these findings. The procedure was reportedly technically difficult, however a stent was placed and patient was discharged to home. She continued to report severe left lower quadrant abdominal pain and hematura for which she contacted her Urologist whom recommend Tylenol/Motrin for pain. Due to persistence of these symptoms she came to the [facility] ED for further evaluation. ED Course: -Vitals: Temp 97.9-98.6, RR 61-71, RR 16-20, BP 140-190/80-102, O2 92-95% on room air -Significant Labs: WBC 10.4, Hgb/Hct 13.0/38.8, Plt 290, Na 133, K 3.7, -Studies: CT Abdomen/Pelvis with IV contrast - left ureter perforation with abdominal fluid and air -Interventions: NaCl 1L, Zofran, Morphine Perforated Ureter s/p Stent Patient with recent hematuria and a reported left ureter mass identified on outpatient CT. Patient underwent cystoscopy with her urologist Dr. Mccarty for which a stent was placed in the left ureter. Patient reported severe abdominal pain with nausea and dry heaves for which she came to the ED for evaluation. CT scan with IV contrast identified that the placed stent punctured the left ureter with an associated collection of fluid and air in the abdomen. Patient was admitted to the ICU and was seen by Dr. Woods the urologist who was covering. He contacted Interventional radiology who placed an urgent nephrostomy tube and Patient was started on empiric Vancomycin/Ceftazidime . He took out the previous stent at the bedside as Dr. Mccarty had left a string.. Patient was hemodynamically stable after the procedure for which she was transferred to the general medicine floor for further evaluation. She was kept on intravenous antibiotics until she was reevaluated by Dr. Mccarty whom recommened removal of the nephrostomy and replacement of the stent. She did have some constipation/ mild ileus but was having flatus and small bowel movements and adequate by mouth intake after the nephrostomy tube was taken out. She underwent these procedures and tolerated them well. She was discharged to home and followed off antibiotics with instruction to follow up with her urologist and primary care provider after discharge. Hypertension Patient was found to be persistently hypertensive (systolic up pt 190) during the admission, this may have been secondary to pain. She was started on amlodipine 5mg which failed to control her blood pressure adequately. This was advanced to 10mg which reduced her systolic blood pressure to the 140's. She was discharged on amlodipine 10mg PO daily and instructed to follow up with her PCP for further evaluation. Allergies: Coded Allergies: No Known Allergies (01/04/17) Significant Procedures: SERVICE DATE: 01/07/17 EXAM TYPE: CAT - CT ABD & PELVIS W IV CONTRAST IMPRESSION: 1. The left double-J ureteral stent punctures through the wall of the left proximal ureter approximately 4 cm inferior to the left UPJ. Foci of gas and a small collection of contrast material are present around the left proximal ureter at the site of perforation. There is a small amount of fluid within the left retroperitoneum and a small amount of intraperitoneal fluid as well. 2. Periportal edema, commonly seen with aggressive intravenous fluid administration. SERVICE DATE: 01/08/17 EXAM TYPE: CAT - CT ABD & PELVIS W/ & W/O IV CO IMPRESSION: Again noted is the malpositioned left double-J ureteral stent which penetrates through the medial wall of the proximal left ureter. Iodinated contrast material and mild amount of hemorrhage are present within the left perinephric space. SERVICE DATE: 01/08/17-999 EXAM TYPE: IR - INTERVENTIONAL SETUP; PERCUTANEOUS NEPHROSTOMY; US-GUIDANCE PROCEDURES: 1. Focal ultrasound evaluation of the left kidney. 2. Left antegrade nephrostogram. 3. Placement of a left-sided 8.5 Fr percutaneous nephrostomy catheter. 4. Post procedure tube nephrostogram. SERVICE DATE: 01/10/17- EXAM TYPE: RAD - [id number] VIEW IMPRESSION: Contrast within a perinephric collection. Ureteral stent placement. Please refer to operative report for additional information. SERVICE DATE: 01/10/178 EXAM TYPE: CAT - CT ABD & PELVIS W IV CONTRAST IMPRESSION: 1. Small residual 2.3 x 1.6 x 4 cm collection of fluid and gas in the medial perinephric space just medial to the renal pelvis and proximal ureter at the site of prior ureteral perforation. This is minimally increased in size from 2.5 x 0.9 x 4 cm previously. The more dense fluid in the posterior perinephric space appears unchanged from prior. 2. Large amount of well-formed stool in the cecum, ascending colon, and proximal transverse colon with borderline dilatation of the transverse colon. This could be due to a mild ileus or constipation. SERVICE DATE: 01/11/17- EXAM TYPE: IR - FLUORO NEEDLE GUIDANCE; INTERVENTIONAL SETUP IMPRESSION: Successful removal of the left nephrostomy tube. Disposition Summary Disposition Principal Diagnosis: Perforated left ureter s/p stent placement Ileus/constipation Additional Diagnosis: Hypertension Discharge Disposition: home or self care Discharge Instructions General Discharge Information Code Status: Full Code Patient's Diet: Regular Diet Patient's Activity: Return to full activity as tolerated Follow-Up Instructions/Appts: Follow up with your primary care provider within two weeks of discharge. Follow up with Dr. Mccarty, your urologist, by the end of the week. Discuss your elevated blood pressure with your primary care provider. Take amlodipine as directed. Take Senna and Colace daily for constipation while taking pain medication. Medications at Discharge Discharge Medications: Continue taking these medications: Sertraline HCl (Sertraline HCl) 50 MG TABLET 1 Tablet ORAL DAILY Qty = 30 Bupropion HCl (Bupropion XL) 150 MG TAB.ER.24H 1 Tablet ORAL Every Morning Qty = 30 Comments: Last Taken:01-11-17 Time:0900 Start taking the following new medications: Docusate Sodium (Docusate Sodium) 100 MG CAPSULE 100 Milligram ORAL DAILY Qty = 30 No Refills Sennosides/Docusate Sodium (Senna Plus Tablet) 8.6 MG-50 MG TABLET 2 Tablet ORAL DAILY Qty = 30 No Refills Morphine Sulfate (Morphine Sulfate) 15 MG TABLET 1 Tablet ORAL 2 x Daily as needed as needed for PAIN Qty = 10 No Refills Amlodipine Besylate (Amlodipine Besylate) 10 MG TABLET 1 Tablet ORAL DAILY Qty = 30 No Refills Copies To: NURA ACOSTA,ANETA; JUMANA LUNDBERG
== END 2017-01-11 18:42 | DRG 443 ==
LOC: ERH 17:04 → ERHI 21:59 → 2NA 21:59 → ENRESERV 22:30 → 2NA 23:00 → CRI 23:16 → 2NA 01-08 15:24 → ENPENDDIS 01-11 16:00 → 2NA 01-11 18:42
PROVIDERS: Internal Medicine Interventional Cardiology; Student in an Organized Health Care Education/Training Program; ADMIT Internal Medicine Critical Care Medicine
PROC: 0T9430Z Drainage of Left Kidney Pelvis with Drainage Device, Percutaneous Approach (ICD-10-PCS; 2017-01-08)
PROC: 0T778DZ Dilation of Left Ureter with Intraluminal Device, Via Natural or Artificial Opening Endoscopic (ICD-10-PCS; principal; 2017-01-10)
PROC: BT1FZZZ Fluoroscopy of Left Kidney, Ureter and Bladder (ICD-10-PCS; principal; 2017-01-10)
PROC: 0TP5X0Z Removal of Drainage Device from Kidney, External Approach (ICD-10-PCS; 2017-01-11)
DX: T83.193A Other mechanical complication of other urinary stent, initial encounter (principal); F17.200 Nicotine dependence, unspecified, uncomplicated; F32.9 Major depressive disorder, single episode, unspecified; R31.9 Hematuria, unspecified; I10 Essential (primary) hypertension; Y83.8 Other surgical procedures as the cause of abnormal reaction of the patient, or of later complication, without mention of misadventure at the time of the procedure; N39.3 Stress incontinence (female) (male); K59.00 Constipation, unspecified
CPT/HCPCS: 2NASP; CCU; 36415; 74000; 74177; 74178; 74475; 77002; 81001; 82436; 87040; 87086; 93005; 93010; 96374; 96375; 96376; C1769; C2617; J0690; J0713; J1100; J1170; J1885; J2250; J2270; J2405; J2765; J3370; J7040; J7042

== ENCOUNTER → 2017-01-07 | Day surgery (SDC) | payer OTHER ==
[~2017-01-07] VITALS: Ht 157.5 cm; Wt 54.4 kg
[~2017-01-07] MED LIST: AMLODIPINE BESY10 M1 PO; BUPROPION XL150 MG PO; DOCUSATE SODIU100 M3 PO; MORPHINE SULFAT15 M4 PO; SENNA PLUS TAB1 EACH PO; SERTRALINE HCL50 MG PO; WELLBUTRIN; ZOLOFT
--- NOTE | 2017-01-07 14:51 | Operative Report ---
Operative/Inv Procedure Report Surgery Date: 01/07/17 Name of Procedure: cystoscopy, retrograde pyelogram, possible ureteroscopy Pre-Operative Diagnosis: ureteral abnormality on CT for hematuria fuller Post-Operative Diagnosis: same Estimated Blood Loss: less than 50ml Surgeon/Production Consultant: ANETA LYMAN MD Anesthesia: local monitored anesthesi Implants: ureteral stent Drains: 6x22cm stent Specimens: none Complications: none Condition: stable Operative Indication: ureteral abnormality Operative/Procedure Note Note: This is an operative dictation on patient Milka Chandler. She was consented for a cystoscopy left retrograde pyelogram left ureteroscopy possible biopsy possible stent. She was given the risks benefits and alternatives of the surgery and the indication for this surgery given the abnormal CT scan results in the left ureter. All questions were answered. Patient was taken to the operating room placed on the operating table in the supine position. Once the timeout was performed IV antibiotics were given and she was placed under anesthesia. She was placed in the dorsolithotomy position and prepped and draped in the standard sterile fashion. Cystoscopy was performed the bladder was globally inspected. There were no anatomic abnormalities or lesions tumors or other issues. The left ureter was then cannulated with a sensor guidewire. The semirigid ureteroscope was attempted to be placed up the ureter but this was not possible due to kinking of the ureteral orifice. A retrograde pyelogram was performed at this time using a dual-lumen catheter. There was no ureteral defect appreciated with this contrast study. A second wire was placed. A flexible ureteroscope was then attempted to be placed over the wire and this again was unsuccessful. The ureteral access sheath was placed over the sensor wire. Once this was done the flexible ureteroscope was able to traverse the ureteral orifice into the renal pelvis. The renal pelvis was examined sequentially and there were no issues. The ureter was examined from the UPJ down to the ureteral orifice and there were no issues either. there was no luminal defect, evidence of tumor or any other issues. A 6 x 22 cm centimeter ureteral stent was placed without difficulty. The string was left attached and this was Tegaderm taped to her right thigh. Bladder was emptied patient tolerated the procedure well. Findings: no ureteral abnormalities by RPG or direct URS. Discharge Disposition: Same Day Admissions
--- NOTE | 2017-01-07 17:44 | RADIOLOGY REPORT ---
EXAMINATION: XR KIDNEYS, URETER, BLADDER CLINICAL INFORMATION: The CT of the abdomen and pelvis showed an irregular filling defect at the mid/distal left ureter on the study dated 12/21/2016. Follow up left-sided ureteroscopy and cystoscopy. COMPARISON: CT abdomen and pelvis done on 12/21/2016. TECHNIQUE: 4 spot radiographs were obtained at the time of the fluoroscopic procedure. FINDINGS: Intraluminal contrast was identified within the left renal pelvicalyceal system and left ureter. The ureteroscope is visualized. There is a guidewire visualized. Final radiograph shows placement of a left internal ureteric stent. The entire extent of the stent is not included within the field of view. FLUOROSCOPY TIME: 32.1 seconds IMPRESSION: Multiple spot radiographs at the time of the procedure, as described above. Full procedural detail and the findings will be dictated by Dr. Mccarty.
== END ==
LOC: STS 01:43
DX: N28.9 Disorder of kidney and ureter, unspecified (principal); R31.9 Hematuria, unspecified; N13.5 Crossing vessel and stricture of ureter without hydronephrosis; F17.200 Nicotine dependence, unspecified, uncomplicated
CPT/HCPCS: 74000; C2617; J0690; J1100; J1885; J2250; J2405